=== PATIENT | female | born 1930 | race African-American/Black ===

== ENCOUNTER 2019-01-31 16:20 | Inpatient (IN) | payer MEDICARE, MEDICAID ==
[2019-01-31] VITALS (7 sets, daily range): BP systolic 98–119; BP diastolic 53–94; BMI 28.5
[~2019-01-31] VITALS: Ht 162.6 cm; Wt 75.1 kg
[2019-01-31] MEDS ORDERED: NORVASC10 MG PO (16:24)
[2019-01-31] MEDS ORDERED: BAYER CHEWABLE81 MG PO (16:25)
[2019-01-31] MEDS ORDERED: LISINOPRIL10 MG PO (16:25)
[2019-01-31] MEDS ORDERED: ZYRTEC10 MG PO (16:25)
--- NOTE | 2019-01-31 16:49 | NUR ---
FSBS= 139
[2019-01-31 16:56] LABS: BASOPHILS 0.1 % (0-2); EOSINOPHILS 0.3 % (0-7); HEMATOCRIT 49.8 % (36.0-48.0); HEMOGLOBIN 14.6 g/dL (12-16); IMMATURE GRANULOCYTES 0.5 % (0-5); MCH 28.8 pg (26.0-34.0); MCHC 29.3 g/dL (31.0-37.0); MCV 98.2 fL (80.0-100.0); MEAN PLATELET VOLUME 13.8 fL (7.4-10.4); NEUTROPHILS 80.1 % (40-80); PLATELET COUNT 148 10x3/uL (130-400); RBC 5.07 10x6/uL (4.00-5.40); RDW 16.6 % (11.5-14.5); WBC 19.1 10x3/uL (4.8-10.8)
[2019-01-31 17:11] LABS: BILIRUBIN - TOTAL 0.23 mg/dL (0.2-1.3); CALCIUM 9.1 mg/dL (8.5-10.1); CARBON DIOXIDE 24.4 mmol/L (21.0-32.0); CREATININE - SERUM 2.9 mg/dL (0.6-1.3); POTASSIUM - SERUM 4.2 mmol/L (3.5-5.1); PROTEIN - SERUM 6.8 g/dL (6.4-8.2)
[2019-01-31 17:14] LABS: ANION GAP 17.8 mmol/L (8-16)
--- NOTE | 2019-01-31 17:26 | NUR ---
DR. LR AT BEDSIDE.
[2019-01-31 18:18] LABS: CALCIUM 9.1 mg/dL (8.5-10.1); CARBON DIOXIDE 22.1 mmol/L (21.0-32.0); CREATININE - SERUM 2.9 mg/dL (0.6-1.3); POTASSIUM - SERUM 4.2 mmol/L (3.5-5.1)
[2019-01-31 18:20] LABS: ANION GAP 21.1 mmol/L (8-16)
--- NOTE | 2019-01-31 18:27 | NUR ---
PT RECIEVED FROM ER, PAGED DR CERVANTES AND BE THROUGH ANSWERING SERVICES FOR ORDER CLARIFICATION
--- NOTE | 2019-01-31 18:37 | NUR ---
SPOKE WITH ANNABELLA MENON ORDERS FOR VALDEZ, SPOKE WITH DR CERVANTES ORDERS FOR BMP 2100, INTERMEDIATE SLIDING SCALE INSULIN AND D5W
--- NOTE | 2019-01-31 19:00 | NUR ---
REPORT RECEIVED AT BEDSIDE, SHIFT ASSESSMENT COMPLETE PER FLOW SHEETS, PT CONFUSED BUT ABLE TO ANSWER SOME QUESTIONS, RT FA PIV INFUSING MEDS PER MAR/ORDERS, BLE CONTRACTURED, PPP, VSS, NSR ON CM, PT INCONTINENT OF STOOL, MAYFIELD SEMIFORMED BM NOTED, PARTIAL BATH WITH COMPLETE LINEN AND GOWN CHANGED, HOB ELEVATED, BED ALARM ON, CALL LIGHT IN REACH, WILL CONTINUE TO MONITOR
--- NOTE | 2019-01-31 19:00 | NUR ---
JUDIT DEVINE (DAUGHTER) [phone] ATIYA DUVAL (SON) [phone] CARLENE DEVINE ([place] ) [phone]
--- NOTE | 2019-01-31 19:20 | NUR ---
16fr. VALDEZ CATH PLACED WITH RN x3 AT BEDSIDE TO ASSIST, PT TOLLERATED WELL, NO S/S OF DISTRESS NOTED, CLEAR YELLOW VOID NOTED WITH 300ML IN GRAVITY BAG WHEN INSERTED BY JAYY MARKHAM RN, STATLOCK PLACED ON LEFT UPPER THIGH, VSS, NSR ON CM
[2019-01-31 21:08] LABS: CALCIUM 8.7 mg/dL (8.5-10.1); CARBON DIOXIDE 24.3 mmol/L (21.0-32.0); CREATININE - SERUM 2.8 mg/dL (0.6-1.3); POTASSIUM - SERUM 4.4 mmol/L (3.5-5.1)
[2019-01-31 21:10] LABS: ANION GAP 16.1 mmol/L (8-16)
--- NOTE | 2019-01-31 21:30 | NUR ---
DR.SHARMA HINES R/T LAB RESULTS
--- NOTE | 2019-01-31 21:35 | NUR ---
CALLED ICU, UPDATE GIVEN, ORDERS RECEIVED TO DECREASE D5W TO 100ML/HR, BMP & CBC MORNING LABS, NO FURTHER AT THIS TIME, WILL CONTINUE TO MONITOR
--- NOTE | 2019-01-31 22:00 | NUR ---
DAUGHTER AND SON AT BEDSIDE, UPDATE GIVEN, QUESTIONS ANSWERED, NO FURTHER AT THIS TIME
--- NOTE | 2019-01-31 23:00 | NUR ---
REASSESSMENT COMPLETE SEE FLOW SHEET, NO ACUTE CHANGES NOTED, VALDEZ TO GRAVITY DRAIN CLEAR YELLOW URINE, REPOSITIONED FOR COMFORT, VSS, NSR ON CM, WILL CONTINUE TO MONITOR
[2019-02-01] VITALS (24 sets, daily range): BP systolic 89–137; BP diastolic 42–86
[2019-02-01 02:22] LABS: BASOPHILS 0.1 % (0-2); EOSINOPHILS 1.2 % (0-7); HEMATOCRIT 45.7 % (36.0-48.0); HEMOGLOBIN 13.7 g/dL (12-16); IMMATURE GRANULOCYTES 0.6 % (0-5); LYMPHOCYTES 17.3 % (15-50); MCH 29.1 pg (26.0-34.0); MONOCYTES 4.6 % (2-11); NEUTROPHILS 76.2 % (40-80); PLATELET COUNT 129 10x3/uL (130-400); RBC 4.71 10x6/uL (4.00-5.40); RDW 16.3 % (11.5-14.5); WBC 17.9 10x3/uL (4.8-10.8)
[2019-02-01 02:28] LABS: ALBUMIN 2.8 g/dL (3.4-5.0); BILIRUBIN - TOTAL 0.51 mg/dL (0.2-1.3); CALCIUM 8.7 mg/dL (8.5-10.1); CARBON DIOXIDE 26.1 mmol/L (21.0-32.0); CREATININE - SERUM 2.8 mg/dL (0.6-1.3); POTASSIUM - SERUM 4.4 mmol/L (3.5-5.1); PROTEIN - SERUM 6.3 g/dL (6.4-8.2)
[2019-02-01 02:34] LABS: ANION GAP 13.3 mmol/L (8-16)
--- NOTE | 2019-02-01 03:00 | NUR ---
REASSESSMENT COMPLETE SEE FLOW SHEET, VSS, NSR ON CM, NO ACUTE CHANGES NOTED FROM PRIOR ASSESSMENT, REPOSITIONED FOR COMFORT, WILL CONTINUE TO MONITOR
--- NOTE | 2019-02-01 07:00 | NUR ---
AWAKES EASILY TO VERBAL STIMULI, NOT RESPONSIVE TO VERBAL STIMULI, DOES NOT ANSWER QUESTION APPRIOPIATELY. TOLD NURSE "I TOLD YOU". SKIN WARM AND DRY. IV RIGHT FOREARM WITHOUT REDNESS OR SWELLING. INFUSING WITH D5W AT 100 ML HOUR. VALDEZ CATH PATENT DRAINING CLEAR CARI URINE. MONITOR SR. PATIENT IN POSITIONED. GRABBING AND PULLING ON EKG WIRES AND GOWN. WILL NOT STRAIGHTEN LEGS, BUT DOES MOVE ARMS UP AND DOWN. HANDS CURLED.
--- NOTE | 2019-02-01 08:00 | NUR ---
DAUGHTER HERE UPDATE GIVEN. DAUGHTER FEED PATIENT SOME JELLO. STATES HER MOTHER DOES NOT DRINK MUCH FLUIDS, BUT EAT SOLID FOOD WELL.
--- NOTE | 2019-02-01 09:00 | NUR ---
PATIENT REPOSITIONED A UNIT IN POSITION. SMALL SOFT BROWN STOOL. NO SKIN BREAKDOWN NOTED. FIESTY PUSHING NURSE AWAY. PULLING LEADS OFF, PULLING GOWN OFF. DAUGHTER AT BEDSIDE.
[2019-02-01 09:39] LABS: CALCIUM 8.4 mg/dL (8.5-10.1); CARBON DIOXIDE 23.9 mmol/L (21.0-32.0); CREATININE - SERUM 2.9 mg/dL (0.6-1.3); POTASSIUM - SERUM 4.1 mmol/L (3.5-5.1)
[2019-02-01 09:42] LABS: ANION GAP 15.2 mmol/L (8-16)
--- NOTE | 2019-02-01 11:00 | NUR ---
REPOSITIONED. ULTRA SOUND COMPLETED. PATIENT MOVING MOST OF THE TIME. DOES NAP AT INTERVALS. NO DISTRESS. ASSESSMENT DOCUMENTED
--- NOTE | 2019-02-01 13:00 | NUR ---
DAUGHTER HERE FEED PATIENT SOME JELLO. REPOSITIONED SMALL SOFT BROWN STOOL.
--- NOTE | 2019-02-01 15:00 | NUR ---
COMPLETE BED BATH GIVEN WITH HIBCLENS. PATIENT TOLERATED WELL. MOD SIZE SOFT BROWN STOOL. NO SKIN BREAKDOWN NOTED. COMPLETE LINEN CHANGE. MONITOR SR. NO DISTRESS. DR. CERVANTES HERE.
[2019-02-01 15:04] LABS: CREATININE - URINE 56.6 mg/dL (30-125); PRO/CRE RATIO URINE 1.1 mg/g; PROTEIN - URINE 60.5 mg/dL (0.0-11.9)
[2019-02-01 15:26] LABS: APPEARANCE CLOUDY (CLEAR); BILIRUBIN NEGATIVE (NEGATIVE); COLOR YELLOW (YELLOW); GLUCOSE 100 mg/dL (NEGATIVE); KETONE NEGATIVE (NEGATIVE); NITRITE NEGATIVE (NEGATIVE); PROTEIN TRACE mg/dL (NEGATIVE); SPECIFIC GRAVITY 1.015 (1.005-1.020); UROBILINOGEN NORMAL (NORMAL)
[2019-02-01 15:28] LABS: AMORPHOUS SEDIMENT <1+ /lpf (NONE SEEN); BACTERIA FEW /hpf (NEGATIVE); RED CELLS - URINE 0-5 /hpf (0-5); WHITE CELLS - URINE 0-5 /hpf (NEGATIVE)
--- NOTE | 2019-02-01 17:00 | NUR ---
feed jello taken fair. more friendly and cooperative. no distress
[2019-02-01 19:14] LABS: CALCIUM 8.4 mg/dL (8.5-10.1); CARBON DIOXIDE 24.1 mmol/L (21.0-32.0); CREATININE - SERUM 2.9 mg/dL (0.6-1.3)
[2019-02-01 19:15] LABS: ANION GAP 15.9 mmol/L (8-16)
--- NOTE | 2019-02-01 19:34 | NUR ---
DR.SHARMA HINES R/T LABS
--- NOTE | 2019-02-01 19:41 | NUR ---
RETURNED PAGE, UPDATE GIVEN WITH LAB RESULTS, NO NEW ORDERS RECEIVED, WILL CONTINUE TO MONITOR
--- NOTE | 2019-02-01 20:12 | NUR ---
SEMISOLID MAYFIELD BROWN BM NOTED, COMPLETE LINEN CHANGE AND PARTIAL BATH, YELLOW GOWN PLACED ON PT, REPOSITIONED FOR COMFORT, VSS, WILL CONTINUE TO MONITOR
--- NOTE | 2019-02-01 23:00 | NUR ---
REASSESSMENT COMPLETE SEE FLOW SHEET, NO ACUTE CHANGES NOTED, VSS, REPOSITIONED FOR COMFORT, WILL CONTINUE TO MONITOR
[2019-02-02] VITALS (11 sets, daily range): BP systolic 105–121; BP diastolic 44–78; Ht 162.6 cm; Wt 75.1 kg
--- NOTE | 2019-02-02 03:00 | NUR ---
REASSESMENT COMPLETE PER FLOW SHEET, NO ACUTE CHANGE NOTED SINCE PRIOR ASSESSMENT, REPOSITIONED FOR COMFORT, VSS, WILL CONTINUE TO MONITOR
[2019-02-02 04:43] LABS: BASOPHILS 0.1 % (0-2); EOSINOPHILS 2.3 % (0-7); HEMATOCRIT 45.2 % (36.0-48.0); HEMOGLOBIN 13.5 g/dL (12-16); IMMATURE GRANULOCYTES 0.8 % (0-5); LYMPHOCYTES 20.5 % (15-50); MCH 28.6 pg (26.0-34.0); MCHC 29.9 g/dL (31.0-37.0); MCV 95.8 fL (80.0-100.0); MONOCYTES 5.3 % (2-11); PLATELET COUNT 121 10x3/uL (130-400); RBC 4.72 10x6/uL (4.00-5.40); RDW 16.4 % (11.5-14.5); WBC 13.7 10x3/uL (4.8-10.8)
[2019-02-02 04:54] LABS: CALCIUM 8.2 mg/dL (8.5-10.1); CARBON DIOXIDE 22.9 mmol/L (21.0-32.0); CREATININE - SERUM 2.8 mg/dL (0.6-1.3); MAGNESIUM - SERUM 3.1 mg/dL (1.8-2.4); POTASSIUM - SERUM 3.9 mmol/L (3.5-5.1); VANCOMYCIN - RANDOM 7.5 ug/mL (10.0-20.0)
--- NOTE | 2019-02-02 07:00 | NUR ---
SHIFT ASSESSMENT COMPLETED. PT CARE ASSUMED, MONITORS ON AND WORKING, VITALS STABLE, PT LYING IN BED RESTING, CALL LIGHT WITHIN REACH, SEE FLOW SHEET FOR FURTHER DETAILS. WILL CONTINUE TO OBSERVE.
--- NOTE | 2019-02-02 09:00 | NUR ---
PT TURNED AND REPOSITIONED FOR COMFORT, MONITORS ON AND WORKING, VITALS STABLE, NO SIGNS/SYMPTOMS OF PAIN OR DISCOMFORT NOTED AT THIS TIME, CALL LIGHT WITHIN REACH, WILL CONTINUE TO OBSERVE.
--- NOTE | 2019-02-02 11:00 | NUR ---
FAMILY AT BEDSIDE, UPDATE PROVIDED, PT SITTING UP IN BED, MONITORS ON AND WORKING, VITALS STABLE, CALL LIGHT WITHIN REACH, WILL CONTINUE TO OBSERVE.
--- NOTE | 2019-02-02 15:00 | NUR ---
PT TURNED AND REPOSITIONED FOR COMFORT, MONITORS ON AND WORKING, VITALS STABLE. CALL LIGHT WITHIN REACH, SEE FLOW SHEET FOR FURTHER DETAILS. WILL CONTINUE TO OBSERVE.
--- NOTE | 2019-02-02 19:15 | NUR ---
REPORT RECEIVED, PT RESTING IN BED, NO ACUTE DISTRESS NOTED. ASSESSMENT COMPLETED, SEE FLOWSHEET. VITALS STABLE, WILL CONTINUE TO MONITOR.
--- NOTE | 2019-02-02 19:44 | MORECARE ---
CASE MANAGEMENT DISCHARGE SUMMARY PATIENT: EMILE AMBRIZ UNIT: [id number] ADM DATE: 01/31/19 AGE: 88 : 32 SEX: F ROOM/BED: D.2305 AUTHOR: TEODORO COLES PHYSICIAN: REFERRING PHYSICIAN: DORA LR MD DATE OF SERVICE: 02/02/19 Discharge Plan Patient Name: EMILE AMBRIZ [facility] [facility] 1930 Planned Disposition: Nursing Facility [facility] Anticipated Discharge Date: Discharge Date: Expected LOS: Initial Reviewer: [email or web address] Initial Review Date: 01/31/2019 Generated: 02/02/19 8:44 pm DCPIA - Discharge Planning Initial Assessment Updated by [email or web address]: Helen Lira on 02/02/19 7:41 pm * Is the patient Alert and Oriented? No * PCP [facility] * Pharmacy [facility] * Preadmission Environment Patient Care Associate Long-Term * Facility Name [facility] * ADLs Total Dependent * List name and contact numbers for known caregivers / representatives who currently or will assist patient after discharge: Porsha Monreo -[facility]- [phone] * Verbal permission to speak to the caregivers and representatives has been obtained from the patient. N/A * Community resources currently utilized None * Additional services required to return to the preadmission environment? No * Can the patient safely return to the preadmission environment? Yes * Has this patient been hospitalized within the prior 30 days at any hospital? No Patient Name: EMILE AMBRIZ Page [id number] at 1944 All edits/amendments must be made on the electronic document DICTATION DATE: 02/02/191943 MANAGER OF FINANCIAL REPORTING: GERMÁN 02/02/191943 RPT#: [id number] DC DATE: STATUS: ADM IN [facility] [address] [place] [address] END OF REPORT
--- NOTE | 2019-02-02 19:52 | MORECARE ---
CASE MANAGEMENT DISCHARGE SUMMARY PATIENT: EMILE AMBRIZ UNIT: [id number] ADM DATE: 01/31/19 AGE: 88 : 32 SEX: F ROOM/BED: D.2305 AUTHOR: SHARYN,DOC PHYSICIAN: REFERRING PHYSICIAN: DORA LR MD DATE OF SERVICE: 02/02/19 Discharge Plan Patient Name: EMILE AMBRIZ Facility: [facility]:[place] : 1930 Planned Disposition: Nursing Facility [facility] Cert Anticipated Discharge Date: Discharge Date: Expected LOS: Initial Reviewer: [email or web address] Initial Review Date: 01/31/2019 Generated: 02/02/19 8:51 pm Comments DCP- Discharge Planning Updated by [email or web address]: Helen Lira on 02/02/19 6:[address] Patient Name: EMILE AMBRIZ Admission Status: ER Accout number: [id number] Admission Date: 01-31-2019 : 1930 Admission Diagnosis: Attending: BE, Current LOS: 2 Anticipated DC Date: Planned Disposition: Nursing Facility [facility] Cert Primary Insurance: MEDICARE A & B Discharge Planning Comments: CM met with patient and daughter (Porsha) to complete initial dc planning assessment. CM educated patient on the CM role and verbal consent given by patient to complete assessment. Patient lives at [facility] her daughter states she has been a resident there for the past 4 yrs. At discharge patient's daughter plans for her to return to facility. Denied known discharge needs at this time. CM will continue to follow and will assist as needed with dc plans/needs. Office Machine Technician: Helen Lira DCPIA - Discharge Planning Initial Assessment Updated by [email or web address]: Helen Lira on 02/02/19 7:41 pm * Is the patient Alert and Oriented? No * PCP [facility] * Pharmacy [facility] * Preadmission Environment Intermediate Fdc * Facility Name [facility] * ADLs Total Dependent * List name and contact numbers for known caregivers / representatives who currently or will assist patient after discharge: Porsha Monroe -daughter- [phone] * Verbal permission to speak to the caregivers and representatives has been obtained from the patient. N/A * Community resources currently utilized None * Additional services required to return to the preadmission environment? No * Can the patient safely return to the preadmission environment? Yes * Has this patient been hospitalized within the prior 30 days at any hospital? No Last DP export: 02/02/19 6:44 p Patient Name: EMILE AMBRIZ Page [id number] at 195 All edits/amendments must be made on the electronic document DICTATION DATE: 02/02/191950 CHIEF DESIGN ENGINEER: GERMÁN 02/02/191950 RPT#: [id number] DC DATE: STATUS: ADM IN [facility] [address] [place] [address] END OF REPORT
--- NOTE | 2019-02-02 21:00 | NUR ---
PT RESTING IN BED, NO ACUTE DISTRESS NOTED.
--- NOTE | 2019-02-02 23:00 | NUR ---
PT RESTING IN BED, NO ACUTE DISTRESS NOTED.
[2019-02-03] VITALS (7 sets, daily range): BP systolic 102–130; BP diastolic 68–106
--- NOTE | 2019-02-03 01:00 | NUR ---
PT RESTING IN BED, NO ACUTE DISTRESS NOTED.
--- NOTE | 2019-02-03 03:00 | NUR ---
PT RESTING IN BED, VITALS STABLE, WILL CONTINUE TO MONITOR.
--- NOTE | 2019-02-03 05:00 | NUR ---
PT RESTING IN BED, NO ACUTE DISTRESS NOTED.
[2019-02-03 05:07] LABS: BASOPHILS 0.2 % (0-2); EOSINOPHILS 2.3 % (0-7); HEMATOCRIT 45.8 % (36.0-48.0); HEMOGLOBIN 13.7 g/dL (12-16); IMMATURE GRANULOCYTES 1.3 % (0-5); LYMPHOCYTES 22.2 % (15-50); MCH 28.6 pg (26.0-34.0); MCHC 29.9 g/dL (31.0-37.0); MCV 95.6 fL (80.0-100.0); MONOCYTES 5.4 % (2-11); NEUTROPHILS 68.6 % (40-80); PLATELET COUNT 103 10x3/uL (130-400); RBC 4.79 10x6/uL (4.00-5.40); RDW 15.9 % (11.5-14.5); WBC 13.6 10x3/uL (4.8-10.8)
[2019-02-03 05:28] LABS: CALCIUM 8.2 mg/dL (8.5-10.1); CARBON DIOXIDE 21.1 mmol/L (21.0-32.0); CREATININE - SERUM 2.5 mg/dL (0.6-1.3); POTASSIUM - SERUM 3.7 mmol/L (3.5-5.1)
[2019-02-03 05:29] LABS: ANION GAP 15.6 mmol/L (8-16)
--- NOTE | 2019-02-03 07:15 | NUR ---
ASSESSMENT DONE AT THIS TIME
--- NOTE | 2019-02-03 09:57 | NUR ---
REPORT RECIEVED. PATIENT DID NOT HAVE IV ACCESS. BLOOD SUGAR NEEDED TO BE CHECKED. NEW IV STARTED IN L WRIST. ROOM AIR. BLANKETS WET DUE TO IV NOT BEING IN VEIN AND BEING IN THE BED. NO DISTRESS. PATIENT LEANED OVER TO R SIDE AND REFUSES TO ALLOW RN'S TO MOVE HER. WILL CONTINUE TO MONITOR HER
--- NOTE | 2019-02-03 11:21 | NUR ---
SPEECH EVAL AT BEDSIDE.
[2019-02-03 17:33] LABS: ANION GAP 12.5 mmol/L (8-16); CALCIUM 8.1 mg/dL (8.5-10.1); CARBON DIOXIDE 22.9 mmol/L (21.0-32.0); CREATININE - SERUM 2.3 mg/dL (0.6-1.3); POTASSIUM - SERUM 3.4 mmol/L (3.5-5.1)
--- NOTE | 2019-02-03 19:00 | NUR ---
BEDSIDE REPORT AND SHIFT ASSESSMENT COMPLETE, SEE FLOWSHEET. PT CONFUSED, UNABLE TO TELL ME HER NAME OR WHERE SHE IS. VSS, NO SIGNS OF ACUTE DISTRESS NOTED. CALL LIGHT IN REACH, BED IN LOWEST POSITION, WILL CONTINUE TO MONITOR.
--- NOTE | 2019-02-03 20:00 | NUR ---
OBSERVED PT PULLING AT LINES, TUBES. ATTEMPTED TO REORIENT.
--- NOTE | 2019-02-03 21:00 | NUR ---
PT HAD LG BM, BATH AND LINEN CHANGE COMPLETE.
--- NOTE | 2019-02-04 00:20 | NUR ---
PIV LEAKING, NOT PATENT. REMOVED AND RESITED 20G TO L FOREARM AND WRAPPED TO PREVENT PT FROM PULLING LINES.
--- NOTE | 2019-02-04 02:30 | NUR ---
PT SLEEPING. VSS, NO SIGNS OF ACUTE DISTRESS NOTED. WILL MONITOR.
[2019-02-04 03:00] VITALS: BP 119/57
[2019-02-04 04:43] LABS: HEMATOCRIT 42.9 % (36.0-48.0); HEMOGLOBIN 13.2 g/dL (12-16); MCH 28.6 pg (26.0-34.0); MCHC 30.8 g/dL (31.0-37.0); PLATELET COUNT 91 10x3/uL (130-400); RBC 4.61 10x6/uL (4.00-5.40); RDW 14.9 % (11.5-14.5); WBC 12.1 10x3/uL (4.8-10.8)
[2019-02-04 05:02] LABS: ANION GAP 12.9 mmol/L (8-16); CALCIUM 8.3 mg/dL (8.5-10.1); CARBON DIOXIDE 24.5 mmol/L (21.0-32.0); CREATININE - SERUM 1.8 mg/dL (0.6-1.3); POTASSIUM - SERUM 3.4 mmol/L (3.5-5.1)
[2019-02-04 05:04] LABS: MCV 93.1 fL (80.0-100.0)
[2019-02-04 05:51] LABS: EOSINOPHILS 3 % (0-7); LYMPHOCYTES 21 % (15-50); MONOCYTES 3 % (2-11); NEUTROPHILS 73 % (40-80); PLATELET ESTIMATE DECREASED
[2019-02-04 06:00] VITALS: BP 128/46
[2019-02-04 09:01] VITALS: BP 142/64
[2019-02-04 12:49] VITALS: BP 122/81
[2019-02-04 18:35] VITALS: BP 118/60
--- NOTE | 2019-02-04 19:15 | NUR ---
LYING IN BED. ALERT AND ORIENTED TO SELF ONLY. CONFUSED. IRRITABLE AT TIMES. RESTLESS,PULLING ON IV LINE. PEG TUBE IS CLAMPED AND ABD BINDER IS IN USE. RESP EVEN AND NONLABORED. VALDEZ CATH PATENT AND DRAINING YELLOW URINE. CONTRACTURES NOTED TO BLE. INCONT OF LARGE AMOUNT OF BROWN LIQUID STOOL. PERICARE PERFORMED AND LINENS CHANGED AT THIS TIME. D5W @ 125 MLHR INFUSING IN RT FOREARM. PT IS BEDRIDDEN. SR ELEVATED X2. CL IN REACH. NO DISTRESS.
[2019-02-04 20:00] VITALS: BP 126/66
--- NOTE | 2019-02-04 23:32 | NUR ---
PULLING AT IV. IV HAS INFILTRATED NOW IN LT FOREARM. IV CATH REMOVED. 22G INSERTED IN RT FOREARM AFTER 2 ATTEMPTS AND WRAPPED WITH KERLIX. PT HAD ALSO PULLED ABD BINDER OPEN. ABD BINDER SECURED AT THIS TIME. PEG TUBE STILL IN.
[2019-02-05] VITALS (7 sets, daily range): BP systolic 104–141; BP diastolic 42–117
--- NOTE | 2019-02-05 01:17 | NUR ---
LYING ON RT SIDE IN BED WITH EYES CLOSED. RESP EVEN AND NONLABORED. NO DISTRESS. ABD BINDER IN PLACE. IV INFUSING IN RT FOREARM WITHOUT DIFF. SR ELEVATED X2. CL IN REACH.
--- NOTE | 2019-02-05 03:41 | NUR ---
LYING ON RT SIDE IN BED WITH EYES CLOSED. RESP NONLABORED. NO DISTRESS. ABD BINDER STILL IN PLACE. SR ELEVATED X2. CL IN REACH.
[2019-02-05 05:38] LABS: BASOPHILS 0.2 % (0-2); EOSINOPHILS 1.8 % (0-7); HEMATOCRIT 40.6 % (36.0-48.0); HEMOGLOBIN 12.8 g/dL (12-16); IMMATURE GRANULOCYTES 1.4 % (0-5); LYMPHOCYTES 17.6 % (15-50); MCH 28.4 pg (26.0-34.0); MCHC 31.5 g/dL (31.0-37.0); MONOCYTES 5.3 % (2-11); NEUTROPHILS 73.7 % (40-80); PLATELET COUNT 86 10x3/uL (130-400); RDW 14.1 % (11.5-14.5); WBC 11.4 10x3/uL (4.8-10.8)
[2019-02-05 05:59] LABS: ANION GAP 11.7 mmol/L (8-16); CALCIUM 8.1 mg/dL (8.5-10.1); CARBON DIOXIDE 24.4 mmol/L (21.0-32.0); CREATININE - SERUM 1.7 mg/dL (0.6-1.3); PHOSPHOROUS 2.3 mg/dL (2.5-4.9); POTASSIUM - SERUM 3.1 mmol/L (3.5-5.1)
[2019-02-05 06:00] LABS: MCV 90.2 fL (80.0-100.0)
[2019-02-05 06:32] LABS: PLATELET ESTIMATE DECREASED
--- NOTE | 2019-02-05 07:27 | NUR ---
A/A/OX1 TO SELF ONLY. NO APPEARANCE OF ANY PAIN (GROANING, MOAINING OR GRIMACING). VALDEZ PATENT AND DRAINING WELL TO BEDSIDE DRAINAGE. PEG TUBE IN PLACE,CLAMPED AND COVERED WITH ABD BINDER. IV PATENT TO RIGHT FOREARM AND INFUSING WELL WITHOUT REDNESS OR EDEMA AT SITE.
--- NOTE | 2019-02-05 09:11 | MORECARE ---
CASE MANAGEMENT DISCHARGE SUMMARY PATIENT: EMILE AMBRIZ UNIT: [id number] ADM DATE: 01/31/19 AGE: 88 : 32 SEX: F ROOM/BED: D.2102 AUTHOR: SHARYN,DOC PHYSICIAN: REFERRING PHYSICIAN: DORA LR MD DATE OF SERVICE: 02/05/19 Discharge Plan Patient Name: EMILE AMBRIZ Facility: [facility]:[place] : 1930 Planned Disposition: Nursing Facility [facility] Cert Anticipated Discharge Date: Discharge Date: Expected LOS: Initial Reviewer: [email or web address] Initial Review Date: 01/31/2019 Generated: 02/05/19 10:11 am Comments DCP- Discharge Planning Updated by [email or web address]: Helen Lira on 02/02/19 6:[address] Patient Name: EMILE AMBRIZ Admission Status: ER Accout number: [id number] Admission Date: 01-31-2019 : 1930 Admission Diagnosis: Attending: BE, Current LOS: 2 Anticipated DC Date: Planned Disposition: Nursing Facility [facility] Cert Primary Insurance: MEDICARE A & B Discharge Planning Comments: CM met with patient and daughter (Porsha) to complete initial dc planning assessment. CM educated patient on the CM role and verbal consent given by patient to complete assessment. Patient lives at [facility] her daughter states she has been a resident there for the past 4 yrs. At discharge patient's daughter plans for her to return to facility. Denied known discharge needs at this time. CM will continue to follow and will assist as needed with dc plans/needs. Business Services Tech: Helen Lira DCPIA - Discharge Planning Initial Assessment Updated by [email or web address]: Helen Lira on 02/02/19 7:41 pm * Is the patient Alert and Oriented? No * PCP [facility] * Pharmacy [facility] * Preadmission Environment Fdc Shelter * Facility Name [facility] * ADLs Total Dependent * List name and contact numbers for known caregivers / representatives who currently or will assist patient after discharge: Porsha Monroe -daughter- [phone] * Verbal permission to speak to the caregivers and representatives has been obtained from the patient. N/A * Community resources currently utilized None * Additional services required to return to the preadmission environment? No * Can the patient safely return to the preadmission environment? Yes * Has this patient been hospitalized within the prior 30 days at any hospital? No External Providers External Provider: [facility] Next Contact Date: 02/05/2019 Service Request Date: Service Type: Resolution: Reviewer: Comments: Last DP export: 02/02/19 6:52 p Patient Name: EMILE AMBRIZ Page [phone] at 0911 All edits/amendments must be made on the electronic document DICTATION DATE: 02/05/19910 OXYGEN TANK FILLER: GERMÁN 02/05/19910 RPT#: [id number] DC DATE: STATUS: ADM IN [facility] [address] [place] [address] END OF REPORT
--- NOTE | 2019-02-05 09:20 | MORECARE ---
CASE MANAGEMENT DISCHARGE SUMMARY PATIENT: EMILE AMBRIZ UNIT: [id number] ADM DATE: 01/31/19 AGE: 88 : 32 SEX: F ROOM/BED: D.2102 AUTHOR: SHARYN,DOC PHYSICIAN: REFERRING PHYSICIAN: DORA LR MD DATE OF SERVICE: 02/05/19 Discharge Plan Patient Name: EMILE AMBRIZ Facility: [facility]:[place] : 1930 Planned Disposition: Nursing Facility [facility] Cert Anticipated Discharge Date: Discharge Date: Expected LOS: Initial Reviewer: [email or web address] Initial Review Date: 01/31/2019 Generated: 02/05/19 10:19 am Comments DCP- Discharge Planning Updated by [email or web address]: Troy Alamo on 02/05/19 8:[address] Patient Name: EMILE AMBRIZ Encounter No: [id number] : 1930 Primary Insurance: MEDICARE A & B Anticipated DC Date: Planned Disposition: Nursing Facility [facility] Cert External Planned Provider[facility], [facility] [employer] [facility] MEDICAID BED DCP follow-up note: CM FA[facility] UPDATE [facility], . FOR DISCHARGE BACK TO LONGTERM CARE AT [facility], FAX DISCHARGE INFORMATION TO [place] AT [phone]. NURSE REPORT TO BE CALLED TO [facility] AT [phone]. PT TO TRANSPORT VIA AMBULANCE. LUCA Lozano DCP- Discharge Planning Updated by [email or web address]: Helen Lira on 02/02/19 6:[address] Patient Name: EMILE AMBRIZ Admission Status: ER Accout number: [id number] Admission Date: 01-31-2019 : 1930 Admission Diagnosis: Attending: BE, Current LOS: 2 Anticipated DC Date: Planned Disposition: Nursing Facility [facility] Cert Primary Insurance: MEDICARE A & B Discharge Planning Comments: CM met with patient and daughter (Porsha) to complete initial dc planning assessment. CM educated patient on the CM role and verbal consent given by patient to complete assessment. Patient lives at [facility] her daughter states she has been a resident there for the past 4 yrs. At discharge patient's daughter plans for her to return to facility. Denied known discharge needs at this time. CM will continue to follow and will assist as needed with dc plans/needs. Photolith Operator: Helen Lira DCPIA - Discharge Planning Initial Assessment Updated by [email or web address]: Helen Lira on 02/02/19 7:41 pm * Is the patient Alert and Oriented? No * PCP [facility] * Pharmacy [facility] * Preadmission Environment Assisted Alf * Facility Name [facility] * ADLs Total Dependent * List name and contact numbers for known caregivers / representatives who currently or will assist patient after discharge: Porsha Monroe -daughter- [phone] * Verbal permission to speak to the caregivers and representatives has been obtained from the patient. N/A * Community resources currently utilized None * Additional services required to return to the preadmission environment? No * Can the patient safely return to the preadmission environment? Yes * Has this patient been hospitalized within the prior 30 days at any hospital? No Last DP export: 02/05/19 8:11 a Patient Name: EMILE AMBRIZ Page [phone] at 0920 All edits/amendments must be made on the electronic document DICTATION DATE: 02/05/19918 SOFTWARE APPLICATIONS DEVELOPER: GERMÁN 02/05/19918 RPT#: [id number] DC DATE: STATUS: ADM IN [facility] [address] [place] [address] END OF REPORT
--- NOTE | 2019-02-05 12:15 | NUR ---
I have reviewed this patient and I concur with the Shift Assessment completed by the Licensed Practical Nurse today this shift.
--- NOTE | 2019-02-05 12:18 | NUR ---
Nutrition Consult/Follow-up: S/p PEG placement yesterday. Received consult for TF. Ate small amt of jamestrevin this AM. Being followed by ST; they rec puree with nectar thick liquids. Diet: Clear Liquids Wt: 165.3# Last BM: 02/04 Labs noted: Na 150, K+ 3.1, Glu 178, Ca 8.1, PO4 2.3 Meds noted: Reglan, Pepcid, Humulin, D5W @ 125 -Start Glucerna 1.0 @ 15 mL/hr and increase by 10 mL q 6 hrs to goal rate of 60 mL/hr; provides 1440 kcal, 60 g protein, 1228 mL H2O. Noted MD to start 200 cc flushes q 4 hours. -Upon d/c, rec Glucerna 1.0 @ 60 mL/hr + H2O flushes 50 mL q 4 hours. -RD following. Thanks for the consult!
--- NOTE | 2019-02-05 13:30 | NUR ---
IV INFILTRATED. IV DC'D AND RESTARTED IN LEFT WRIST WITH 22 G X 1 ATTEMPT.
--- NOTE | 2019-02-05 14:00 | NUR ---
TUBE FEEDING STARTED VIA PUMP TO PEG TUBE WITH GLUCERNA 1.0 AT 15 CC HR. WITH Q4HR H20 FLUSH OF 200CC. ABD BINDER REMAINS IN PLACE.
--- NOTE | 2019-02-05 15:07 | NUR ---
TUBE FEEDING INCREASED TO 25 CC/HR
--- NOTE | 2019-02-05 16:00 | MORECARE ---
CASE MANAGEMENT DISCHARGE SUMMARY PATIENT: EMILE AMBRIZ UNIT: [id number] ADM DATE: 01/31/19 AGE: 88 : 32 SEX: F ROOM/BED: D.2102 AUTHOR: SHARYNDOC PHYSICIAN: REFERRING PHYSICIAN: DORA LR MD DATE OF SERVICE: 02/05/19 Discharge Plan Patient Name: EMILE AMBRIZ Facility: [facility]:[place] : 1930 Planned Disposition: Nursing Facility [facility] Cert Anticipated Discharge Date: 02/06/19 Discharge Date: Expected LOS: 6 Initial Reviewer: [email or web address] Initial Review Date: 01/31/2019 Generated: 02/05/19 4:59 pm Comments DCP- Discharge Planning Updated by [email or web address]: Troy Alamo on 02/05/19 8:[address] Patient Name: EMILE AMBRIZ Encounter No: [id number] : 1930 Primary Insurance: MEDICARE A & B Anticipated DC Date: Planned Disposition: Nursing Facility [facility] Cert External Planned Provider: [facility], LONG TERM CARE MEDICAID BED DCP follow-up note: CM FAXED UPDATE TO [facility], . FOR DISCHARGE BACK TO [facility], FAX DISCHARGE INFORMATION TO [place] AT [phone]. NURSE REPORT TO BE CALLED TO [facility] AT [phone]. PT TO TRANSPORT VIA AMBULANCE. LUCA Lozano DCP- Discharge Planning Updated by [email or web address]: Helen Lira on 02/02/19 6:[address] Patient Name: EMILE AMBRIZ Admission Status: ER Accout number: [id number] Admission Date: 01-31-2019 : 1930 Admission Diagnosis: Attending: BE, Current LOS: 2 Anticipated DC Date: Planned Disposition: Nursing Facility [facility] Cert Primary Insurance: MEDICARE A & B Discharge Planning Comments: CM met with patient and daughter (Porsha) to complete initial dc planning assessment. CM educated patient on the CM role and verbal consent given by patient to complete assessment. Patient lives at [facility] her daughter states she has been a resident there for the past 4 yrs. At discharge patient's daughter plans for her to return to facility. Denied known discharge needs at this time. CM will continue to follow and will assist as needed with dc plans/needs. Audiovisual Equipment Operator: Helen Lira DCPIA - Discharge Planning Initial Assessment Updated by [email or web address]: Helen Lira on 02/02/19 7:41 pm * Is the patient Alert and Oriented? No * PCP [facility] * Pharmacy [facility] * Preadmission Environment Mammography Technologist Custodial * Facility Name [facility] * ADLs Total Dependent * List name and contact numbers for known caregivers / representatives who currently or will assist patient after discharge: Porsha Monroe -daughter- [phone] * Verbal permission to speak to the caregivers and representatives has been obtained from the patient. N/A * Community resources currently utilized None * Additional services required to return to the preadmission environment? No * Can the patient safely return to the preadmission environment? Yes * Has this patient been hospitalized within the prior 30 days at any hospital? No Last DP export: 02/05/19 8:20 a Patient Name: EMILE AMBRIZ Page 45094 at 1600 All edits/amendments must be made on the electronic document DICTATION DATE: 02/05/191558 MATERIAL HANDLER: GERMÁN 02/05/191558 RPT#: [id number] DC DATE: STATUS: ADM IN [facility] [address] [place] [address] END OF REPORT
--- NOTE | 2019-02-05 16:07 | MORECARE ---
CASE MANAGEMENT DISCHARGE SUMMARY PATIENT: EMILE AMBRIZ UNIT: [id number] ADM DATE: 01/31/19 AGE: 88 : 32 SEX: F ROOM/BED: D.2102 AUTHOR: SHARYN,DOC PHYSICIAN: REFERRING PHYSICIAN: DORA LR MD DATE OF SERVICE: 02/05/19 Discharge Plan Patient Name: EMILE AMBRIZ Facility: [facility]:[place] : 1930 Planned Disposition: Nursing Facility [facility] Cert Anticipated Discharge Date: 02/06/19 Discharge Date: Expected LOS: 6 Initial Reviewer: [email or web address] Initial Review Date: 01/31/2019 Generated: 02/05/19 5:07 pm Comments DCP- Discharge Planning Updated by [email or web address]: Troy Alamo on 02/05/19 3:[address] Patient Name: EMILE AMBRIZ Encounter No: [id number] : 1930 Primary Insurance: MEDICARE A & B Anticipated DC Date: 02-06-2019 Planned Disposition: Nursing Facility [facility] Cert External Planned Provider: [facility], LONG TERM CARE MEDICAID BED CM CALLED AND SPOKE TO [facility], , WHO ASKED FOR UPDATE ON DIET. CM NOTIFIED OF DIET ORDERS. NOTIFIED OF PLANNED DISHCHARGE TO [facility] TOMORROW. CM FAXED UPDATE TO [facility], . FOR DISCHARGE BACK TO [facility] AT [facility], FAX DISCHARGE INFORMATION TO [facility] AT [phone]. NURSE REPORT TO BE CALLED TO [facility] AT [phone]. PT TO TRANSPORT VIA AMBULANCE. LUCA Lozano DCP- Discharge Planning Updated by [id number]: Troy Alamo on 02/05/19 8:[address] Patient Name: EMILE AMBRIZ Encounter No: [id number] : 1930 Primary Insurance: MEDICARE A & B Anticipated DC Date: Planned Disposition: Nursing Facility [facility] Cert External Planned Provider: [facility], SENIOR LIVING CARE MEDICAID BED DCP follow-up note: CM FAXED UPDATE TO [facility], . FOR DISCHARGE BACK TO [facility] AT [facility], FAX DISCHARGE INFORMATION TO [facility] AT [phone]. NURSE REPORT TO BE CALLED TO [facility] AT [phone]. PT TO TRANSPORT VIA AMBULANCE. Troy Alamo, CASE MANAGEMENT DCP- Discharge Planning Updated by [email or web address]: Helen Lira on 02/02/19 6:[address] Patient Name: EMILE AMBRIZ Admission Status: ER Accout number: [id number] Admission Date: 01-31-2019 : 1930 Admission Diagnosis: Attending: BE, Current LOS: 2 Anticipated DC Date: Planned Disposition: Nursing Facility [facility] Primary Insurance: MEDICARE A & B Discharge Planning Comments: CM met with patient and daughter (Porsha) to complete initial dc planning assessment. CM educated patient on the CM role and verbal consent given by patient to complete assessment. Patient lives at [facility] her daughter states she has been a resident there for the past 4 yrs. At discharge patient's daughter plans for her to return to facility. Denied known discharge needs at this time. CM will continue to follow and will assist as needed with dc plans/needs. Bank Analyst: Helen Lira DCPIA - Discharge Planning Initial Assessment Updated by [email or web address]: Helen Lira on 02/02/19 7:41 pm * Is the patient Alert and Oriented? No * PCP [facility] * Pharmacy [facility] * Preadmission Environment [employer] [facility] * Facility Name [facility] * ADLs Total Dependent * List name and contact numbers for known caregivers / representatives who currently or will assist patient after discharge: Porsha Monroe -daughter- [phone] * Verbal permission to speak to the caregivers and representatives has been obtained from the patient. N/A * Community resources currently utilized None * Additional services required to return to the preadmission environment? No * Can the patient safely return to the preadmission environment? Yes * Has this patient been hospitalized within the prior 30 days at any hospital? No Last DP export: 02/05/19 3:00 p Patient Name: EMILE AMBRIZ Page 06153 at 1607 All edits/amendments must be made on the electronic document DICTATION DATE: 02/05/191606 PRINTED CIRCUIT BOARD PANELS DEVELOPER: GERMÁN 02/05/191606 RPT#: [id number] DC DATE: STATUS: ADM IN [facility] [address] [place] [address] END OF REPORT
--- NOTE | 2019-02-05 18:33 | NUR ---
TUBE FEEDING INCREASED TO 25CC HR. TOLERATING FEEDING WELL.
--- NOTE | 2019-02-05 19:12 | NUR ---
AWAKE WITH FAMILY PRESENT BED LOW AND LOCKED AND SRX2
--- NOTE | 2019-02-06 01:51 | NUR ---
I have reviewed this patient and I concur with the Shift Assessment completed by the Licensed Practical Nurse today this shift.
[2019-02-06 04:00] VITALS: BP 140/121
[2019-02-06 05:29] LABS: HEMATOCRIT 42.5 % (36.0-48.0); HEMOGLOBIN 13.6 g/dL (12-16); MCH 28.8 pg (26.0-34.0); MCV 89.9 fL (80.0-100.0); PLATELET COUNT 85 10x3/uL (130-400); RBC 4.73 10x6/uL (4.00-5.40); RDW 14.1 % (11.5-14.5); WBC 11.7 10x3/uL (4.8-10.8)
[2019-02-06 05:58] LABS: ANION GAP 15.1 mmol/L (8-16); CALCIUM 8.7 mg/dL (8.5-10.1); CARBON DIOXIDE 21.1 mmol/L (21.0-32.0); CREATININE - SERUM 1.6 mg/dL (0.6-1.3); PHOSPHOROUS 2.3 mg/dL (2.5-4.9); POTASSIUM - SERUM 3.2 mmol/L (3.5-5.1)
--- NOTE | 2019-02-06 07:21 | NUR ---
REPORT RECIEVED. PT LYING ON RIGHT SIDE. A&CONFUSED. RR EVEN AND UNLABORED. SHE HAS A L HAND PIV THAT IS SL. SHE HAS A PEG TUBE WITH CONTINUOUS FEEDING WITH A RATE OF 45 AT THIS TIME. SHE HAS A VALDEZ DRAINING URINE. FAMILY AT BEDSIDE. BED LOCKED AND IN LOWEST POSITION, CALL LIGHT WITHIN REACH. WILL CTM
[2019-02-06 09:00] VITALS: BP 112/66
--- NOTE | 2019-02-06 10:14 | MORECARE ---
CASE MANAGEMENT DISCHARGE SUMMARY PATIENT: EMILE AMBRIZ UNIT: [id number] ADM DATE: 01/31/19 AGE: 88 : 32 SEX: F ROOM/BED: D.2102 AUTHOR: SHARYN,DOC PHYSICIAN: REFERRING PHYSICIAN: DORA LR MD DATE OF SERVICE: 02/06/19 Discharge Plan Patient Name: EMILE AMBRIZ Facility: [facility]:[place] : 1930 Planned Disposition: Nursing Facility [facility] Cert Anticipated Discharge Date: 02/06/19 Discharge Date: Expected LOS: 6 Initial Reviewer: [email or web address] Initial Review Date: 01/31/2019 Generated: 02/06/19 11:13 am Comments DCP- Discharge Planning Updated by [email or web address]: Troy Alamo on 02/06/19 9:[address] Patient Name: EMILE AMBRIZ Encounter No: [id number] : 1930 Primary Insurance: MEDICARE A & B Anticipated DC Date: 02-06-2019 Planned Disposition: Nursing Facility [facility] Cert External Planned Provider: [facility], DIAL POLISHER CARE MEDICAID BED CM SPOKE TO PT'S DAUGHTER, PORSHA MONROE, IN ROOM, DISCUSSED DISCHARGE PLANNING. PORSHA CONFIRMS PT WILL DISCHARGE BACK TO [facility] AT DISCHARGE. IMPORTANT MESSAGE FROM MEDICARE PROVIDED AND DISCUSSED. FOR DISCHARGE BACK TO [facility] AT [facility], FAX DISCHARGE INFORMATION TO [facility] AT [phone]. NURSE REPORT TO BE CALLED TO [facility] AT [phone]. PT TO TRANSPORT VIA AMBULANCE. LUCA Lozano DCP- Discharge Planning Updated by [id number]: Troy Alamo on 02/05/19 3:[address] Patient Name: EMILE AMBRIZ Encounter No: [id number] : 1930 Primary Insurance: MEDICARE A & B Anticipated DC Date: 02-06-2019 Planned Disposition: Nursing Facility [facility] Cert External Planned Provider: [facility], DETENTION CARE MEDICAID BED CM CALLED AND SPOKE TO [facility], , WHO ASKED FOR UPDATE ON DIET. CM NOTIFIED OF DIET ORDERS. NOTIFIED OF PLANNED DISHCHARGE TO [facility] TOMORROW. CM [facility], . FOR DISCHARGE BACK TO [facility] C[facility], FAX DISCHARGE INFORMATION TO [facility] AT [phone]. NURSE REPORT TO BE CALLED TO [facility] AT [phone]. PT TO TRANSPORT VIA AMBULANCE. Troy Alamo CASE MANAGEMENT DCP- Discharge Planning Updated by [email or web address]: Troy Alamo on 02/05/19 8:[address] Patient Name: EMILE AMBRIZ Encounter No: [id number] : 1930 Primary Insurance: MEDICARE A & B Anticipated DC Date: Planned Disposition: Nursing Facility [facility] Cert External Planned Provider: [facility], DETENTION CARE MEDICAID BED DCP follow-up note: CM FAXED UPDATE TO [facility], . FOR DISCHARGE BACK TO DETENTION CARE AT [facility], FAX DISCHARGE INFORMATION TO [facility] AT [phone]. NURSE REPORT TO BE [facility] AT [phone]. PT TO TRANSPORT VIA AMBULANCE. Troy Alamo CASE MANAGEMENT DCP- Discharge Planning Updated by [email or web address]: Helen Lira on 02/02/19 6:[address] Patient Name: EMILE AMBRIZ Admission Status: ER Accout number: [id number] Admission Date: 01-31-2019 : 1930 Admission Diagnosis: Attending: BE, Current LOS: 2 Anticipated DC Date: Planned Disposition: Nursing Facility [facility] Cert Primary Insurance: MEDICARE A & B Discharge Planning Comments: CM met with patient and daughter (Porsha) to complete initial dc planning assessment. CM educated patient on the CM role and verbal consent given by patient to complete assessment. Patient lives at [facility] her daughter states she has been a resident there for the past 4 yrs. At discharge patient's daughter plans for her to return to facility. Denied known discharge needs at this time. CM will continue to follow and will assist as needed with dc plans/needs. Vice President Of Brand Management: Helen Lira DCPIA - Discharge Planning Initial Assessment Updated by [email or web address]: Helen Lira on 02/02/19 7:41 pm * Is the patient Alert and Oriented? No * PCP [facility] * Pharmacy [facility] * Preadmission Environment [facility] * Facility Name [facility] * ADLs Total Dependent * List name and contact numbers for known caregivers / representatives who currently or will assist patient after discharge: Porsha Monroe -daughter- [phone] * Verbal permission to speak to the caregivers and representatives has been obtained from the patient. N/A * Community resources currently utilized None * Additional services required to return to the preadmission environment? No * Can the patient safely return to the preadmission environment? Yes * Has this patient been hospitalized within the prior 30 days at any hospital? No Coverage Notice Reviewer: [id number] Maryann Alamo Notice Issued Date-Time: 02/06/2019 10:05 Notice Type: IM Discharge Notice Notice Delivered To: Family Member Relationship to Patient: Daughter Journalism Instructor Name: PORSHA MONROE Delivery Method: HAND - Hand Delivered Susannah Days: Prior Verbal Notification: Recipient Understood Notice: Yes Recipient Signature: Yes Med Rec Note Co-signed by Attending: Coverage Notice Comment: Last DP export: 02/05/19 3:07 p Patient Name: EMILE AMBRIZ Page 17735 at 1014 All edits/amendments must be made on the electronic document DICTATION DATE: 02/06/19 1013 NURSE RN BSN: GERMÁN 02/06/19 1013 RPT#: [id number] DC DATE: STATUS: ADM IN [facility] [address] [place] [address] END OF REPORT
[2019-02-06 11:09] LABS: BASOPHILS 2 % (0-2); EOSINOPHILS 2 % (0-7); LYMPHOCYTES 22 % (15-50); MONOCYTES 6 % (2-11); NEUTROPHILS 65 % (40-80); PLATELET ESTIMATE DECREASED; ROULEAUX OCC
--- NOTE | 2019-02-06 12:32 | NUR ---
Nutrition Follow-up: TF started yesterday. Spoke with pt's nurse this AM. She reports pt tolerating TF at 45 mL/hr with plans to advance to goal rate today. Continue nectar thick liquids per ST. Diet: Clear Liquids, [place] Thick Glucerna 1.0 - goal rate 60 mL/hr No new wt Last BM: 02/05 per chart Labs noted: Na 149, K+ 3.2, Glu 171, PO4 2.3 Meds noted: Humulin -Continue to advance TF to goal rate as tolerated. -PO intake as tolerated; consistencies per ST. -RD following.
[2019-02-06 13:53] VITALS: BP 127/78
--- NOTE | 2019-02-06 16:20 | MORECARE ---
CASE MANAGEMENT DISCHARGE SUMMARY PATIENT: EMILE AMBRIZ UNIT: [id number] ADM DATE: 01/31/19 AGE: 88 : 32 SEX: F ROOM/BED: D.2102 AUTHOR: SHARYNDOC PHYSICIAN: REFERRING PHYSICIAN: DORA LR MD DATE OF SERVICE: 02/06/19 Discharge Plan Patient Name: EMILE AMBRIZ Facility: [facility]:[place] : 1930 Planned Disposition: Nursing Facility [facility] Cert Anticipated Discharge Date: 02/07/19 Discharge Date: Expected LOS: 7 Initial Reviewer: [email or web address] Initial Review Date: 01/31/2019 Generated: 02/06/19 5:20 pm Comments DCP- Discharge Planning Updated by [email or web address]: Troy Alamo on 02/06/19 3:[address] Patient Name: EMILE AMBRIZ Encounter No: [id number] : 1930 Primary Insurance: MEDICARE A & B Anticipated DC Date: 02-07-2019 Planned Disposition: Nursing Facility [facility] Cert External Planned Provider: [facility], [facility] MEDICAID BED [facility], THEY HAVE FORMULA ORDERED AND WILL HAVE IT SATURDAY. THEY WILL TRY TO ORDER FORMULA FOR TOMORROW DELIVERY BUT CANNOT BE CERTAIN IT WILL ARRIVE. THEY WILL ACCEPT PT TOMORROW, 02-07-19, BUT WOULD NEED FORMULA FOR SATURDAY AND SATURDAY SENT WITH PT IF POSSIBLE. BEDSIDE NURSE NOTIFIED. FOR DISCHARGE BACK TO [facility], FAX DISCHARGE INFORMATION TO [facility] AT [phone]. NURSE REPORT TO BE CALLED TO [facility] AT [phone]. PT TO TRANSPORT VIA AMBULANCE. PLEASE SEND TUBE FEEDING FORMULA FOR SATURDAY AND SATURDAY. LUCA Lozano DCP- Discharge Planning Updated by [email or web address]: Troy Alamo on 02/06/19 9:[address] Patient Name: EMIEL AMBRIZ Encounter No: [id number] : 1930 Primary Insurance: MEDICARE A & B Anticipated DC Date: 02-06-2019 Planned Disposition: Nursing Facility [facility] Cert External Planned Provider: [facility], LONG TERM CARE MEDICAID BED CM SPOKE TO PT'S DAUGHTER, PORSHA MONROE, IN ROOM, DISCUSSED DISCHARGE PLANNING. PORSHA CONFIRMS PT WILL DISCHARGE BACK TO [facility] AT DISCHARGE. IMPORTANT MESSAGE FROM MEDICARE PROVIDED AND DISCUSSED. FOR DISCHARGE BACK TO [facility] AT [facility], FAX DISCHARGE INFORMATION TO [facility] AT [phone]. NURSE REPORT TO BE CALLED TO [facility] AT [phone]. PT TO TRANSPORT VIA AMBULANCE. LUCA Lozano DCP- Discharge Planning Updated by [email or web address]: Troy Alamo on 02/05/19 3:[address] Patient Name: EMILE AMBRIZ Encounter No: [id number] : 1930 Primary Insurance: MEDICARE A & B Anticipated DC Date: 02-06-2019 Planned Disposition: Nursing Facility [facility] Cert External Planned Provider: [facility], LONG TERM CARE MEDICAID BED CM CALLED AND SPOKE TO [facility], , WHO ASKED FOR UPDATE ON DIET. CM NOTIFIED OF DIET ORDERS. NOTIFIED OF PLANNED DISHCHARGE TO [facility] TOMORROW. CM FAXED UPDATE TO [facility], . FOR DISCHARGE BACK TO [facility] AT [facility], FAX DISCHARGE INFORMATION TO [facility] AT [phone]. NURSE REPORT TO BE CALLED TO [facility] AT [phone]. PT TO TRANSPORT VIA AMBULANCE. Troy Alamo CASE MANAGEMENT DCP- Discharge Planning Updated by [email or web address]: Troy Alamo on 02/05/19 8:[address] Patient Name: EMILE AMBRIZ Encounter No: [id number] : 1930 Primary Insurance: MEDICARE A & B Anticipated DC Date: Planned Disposition: Nursing Facility [facility] Cert External Planned Provider: [facility], LONG TERM CARE MEDICAID BED DCP follow-up note: CM FAXED UPDATE TO [facility], . FOR DISCHARGE BACK TO [facility] AT [facility], FAX DISCHARGE INFORMATION TO [facility] AT [phone]. NURSE REPORT TO BE CALLED TO [facility] AT [phone]. PT TO TRANSPORT VIA AMBULANCE. Troy Alamo, CASE MANAGEMENT DCP- Discharge Planning Updated by [email or web address]: Helen Lira on 02/02/19 6:[address] Patient Name: EMILE AMBRIZ Admission Status: ER Accout number: [id number] Admission Date: 01-31-2019 : 1930 Admission Diagnosis: Attending: BE, Current LOS: 2 Anticipated DC Date: Planned Disposition: Nursing Facility [facility] Primary Insurance: MEDICARE A & B Discharge Planning Comments: CM met with patient and daughter (Porsha) to complete initial dc planning assessment. CM educated patient on the CM role and verbal consent given by patient to complete assessment. Patient lives at [facility] her daughter states she has been a resident there for the past 4 yrs. At discharge patient's daughter plans for her to return to facility. Denied known discharge needs at this time. CM will continue to follow and will assist as needed with dc plans/needs. Environmental Engineering Manager: Helen Lira DCPIA - Discharge Planning Initial Assessment Updated by [id number]: Helen Aguilarr on 02/02/19 7:41 pm * Is the patient Alert and Oriented? No * PCP [facility] * Pharmacy [facility] * Preadmission Environment [employer] * Facility Name [facility] * ADLs Total Dependent * List name and contact numbers for known caregivers / representatives who currently or will assist patient after discharge: Porsha Monroe -daughter- [phone] * Verbal permission to speak to the caregivers and representatives has been obtained from the patient. N/A * Community resources currently utilized None * Additional services required to return to the preadmission environment? No * Can the patient safely return to the preadmission environment? Yes * Has this patient been hospitalized within the prior 30 days at any hospital? No Coverage Notice Reviewer: [id number] - Troy Alamo Notice Issued Date-Time: 02/06/2019 10:05 Notice Type: IM Discharge Notice Notice Delivered To: Family Member Relationship to Patient: Daughter Wastewater Engineer Name: PORSHA MONROE Delivery Method: HAND - Hand Delivered Susannah Days: Prior Verbal Notification: Recipient Understood Notice: Yes Recipient Signature: Yes Med Rec Note Co-signed by Attending: Coverage Notice Comment: Last DP export: 02/06/19 9:14 a Patient Name: EMILE AMBRIZ Page 49920 at 1620 All edits/amendments must be made on the electronic document DICTATION DATE: 02/06/19 1620 SENIOR DATA SCIENTIST: GERMÁN 02/06/19 1620 RPT#: [id number] DC DATE: STATUS: ADM IN [facility] [address] [place] [address] END OF REPORT
[2019-02-06 18:40] VITALS: BP 133/52
--- NOTE | 2019-02-06 18:45 | NUR ---
WRITTEN REPORT RECEIVED, PT CARE ASSUMED. INTRODUCED SELF AND WROTE NAME ON BOARD. PT LYING IN BED WATCHING TV, AAOX1, REORIENTED TO TIME, PLACE, AND SITUATION. DENIES PAIN OR ANY OTHER NEEDS AT THIS TIME. BED IN LOWEST POSITION, SR X3, CALL LIGHT WITHIN REACH. WILL CONTINUE TO MONITOR.
[2019-02-06 20:00] VITALS: BP 112/59
--- NOTE | 2019-02-06 21:23 | NUR ---
FSBS 226, 8 UNITS INSULIN ADMINSITERED LEFT ARM, PER SLIDING SCALE. 2 ML RESIDUAL NOTED FROM G-TUBE. 20 ML WATER FLUSH ADMINSITERED, PT TOLERATED WITHOUT ISSUE. BM NOTED IN BED, ASSISTED SHAY BASHIR, WITH LINEN/GOWN CHANGE AND BATH. PT REORIENTED TO PLACE, SITUATION, AND TIME. DENIES ANY OTHER NEEDS AT THIS TIME. BED IN LOWEST POSITION, SR X2, CALL LIGHT WITHIN REACH. WILL CONTINUE TO MONITOR.
[2019-02-07] VITALS: BP 115/63
[2019-02-07 04:30] VITALS: BP 126/105
[2019-02-07 05:31] LABS: ANION GAP 11.1 mmol/L (8-16); CALCIUM 8.6 mg/dL (8.5-10.1); CARBON DIOXIDE 24.2 mmol/L (21.0-32.0); CREATININE - SERUM 1.5 mg/dL (0.6-1.3); PHOSPHOROUS 2.4 mg/dL (2.5-4.9); POTASSIUM - SERUM 3.3 mmol/L (3.5-5.1)
[2019-02-07 05:38] LABS: BASOPHILS 0.2 % (0-2); EOSINOPHILS 1.5 % (0-7); HEMATOCRIT 39.1 % (36.0-48.0); HEMOGLOBIN 12.5 g/dL (12-16); IMMATURE GRANULOCYTES 2.6 % (0-5); LYMPHOCYTES 15.2 % (15-50); MCH 28.5 pg (26.0-34.0); MCV 89.3 fL (80.0-100.0); MONOCYTES 4.8 % (2-11); NEUTROPHILS 75.7 % (40-80); RBC 4.38 10x6/uL (4.00-5.40); RDW 14.3 % (11.5-14.5); WBC 12.4 10x3/uL (4.8-10.8)
[2019-02-07 05:39] LABS: PLATELET COUNT 91 10x3/uL (130-400)
[2019-02-07 08:06] VITALS: BP 157/97
[2019-02-07 11:43] VITALS: BP 114/63
--- NOTE | 2019-02-07 12:33 | NUR ---
REC'D IN BED AWAKE AND ALERT TO SELF ONLY. RESP EVEN AND UNLABORED WITH NO DISTRESS NOTED. CAN EXPRESS NEEDS AND WANTS. NO C/O PAIN OR DISCOMFORT NOTED. ASSESSMENT COMPLETED. C/L IN REACH AT BEDSIDE.
[2019-02-07 15:58] VITALS: BP 127/68
--- NOTE | 2019-02-07 17:11 | NUR ---
I have reviewed this patient and I concur with the Shift Assessment completed by the Licensed Practical Nurse today this shift.
[2019-02-07 17:20] LABS: APPEARANCE CLEAR (CLEAR); BILIRUBIN NEGATIVE (NEGATIVE); COLOR YELLOW (YELLOW); GLUCOSE 250 mg/dL (NEGATIVE); KETONE NEGATIVE (NEGATIVE); NITRITE NEGATIVE (NEGATIVE); PROTEIN 1+ mg/dL (NEGATIVE); UROBILINOGEN NORMAL (NORMAL)
[2019-02-07 17:25] LABS: BACTERIA FEW /hpf (NEGATIVE); EPITHELIAL CELLS NSEEN /hpf (0-5); RED CELLS - URINE 0-5 /hpf (0-5); WHITE CELLS - URINE 0-5 /hpf (NEGATIVE)
--- NOTE | 2019-02-07 19:05 | NUR ---
DAUGHTER AT BEDSIDE.
--- NOTE | 2019-02-07 19:10 | NUR ---
BEDSIDE REPORT RECEIVED FROM DAY SHIFT, PT CARE ASSUMED. WROTE NAME ON BOARD, PT SITTING UP IN BED, WATCHING TV, AAOX1. REORIENTED TO TIME, PLACE, AND SITUATION. PT READJUSTED IN BED, HOB @ 30, DENIES PAIN OR ANY OTHER NEEDS AT THIS TIME. BED IN LOWEST POSITION, SR X2, CALL LIGHT WITHIN REACH. WILL CONTINUE TO MONITOR.
[2019-02-07 20:00] VITALS: BP 101/66
[2019-02-08] VITALS (7 sets, daily range): BP systolic 122–176; BP diastolic 66–100
--- NOTE | 2019-02-08 02:06 | NUR ---
PT LYING IN BED WITH EYES CLOSED, RR EVEN AND NONLABORED, NO S/S OF DISTRESS, AROUSES EASILY TO VOICE. NEW TUBE FEEDING SET HUNG, FREE H20 FLUSHES INCREASED TO 250 ML Q4HRS, PER ORDER. DENIES ANY NEEDS AT THIS TIME. BED IN LOWEST POSITION, SR X3, CALL LIGHT WITHIN REACH. DAUGHTER AT BEDSIDE. WILL CONTINUE TO MONITOR.
[2019-02-08 04:55] LABS: BASOPHILS 0.1 % (0-2); EOSINOPHILS 1.1 % (0-7); HEMATOCRIT 39.4 % (36.0-48.0); HEMOGLOBIN 12.7 g/dL (12-16); IMMATURE GRANULOCYTES 1.7 % (0-5); LYMPHOCYTES 13.7 % (15-50); MCH 28.7 pg (26.0-34.0); MCHC 32.2 g/dL (31.0-37.0); MCV 88.9 fL (80.0-100.0); MEAN PLATELET VOLUME 13.5 fL (7.4-10.4); MONOCYTES 5.5 % (2-11); NEUTROPHILS 77.9 % (40-80); PLATELET COUNT 98 10x3/uL (130-400); RBC 4.43 10x6/uL (4.00-5.40); RDW 14.2 % (11.5-14.5); WBC 14.1 10x3/uL (4.8-10.8)
[2019-02-08 04:57] LABS: PLATELET ESTIMATE DECREASED
[2019-02-08 05:11] LABS: ANION GAP 13.1 mmol/L (8-16); CALCIUM 8.9 mg/dL (8.5-10.1); CARBON DIOXIDE 24.6 mmol/L (21.0-32.0); CREATININE - SERUM 1.4 mg/dL (0.6-1.3); PHOSPHOROUS 2.3 mg/dL (2.5-4.9); POTASSIUM - SERUM 3.7 mmol/L (3.5-5.1)
--- NOTE | 2019-02-08 20:00 | NUR ---
ALERT CONFUSED, NO APPARENT DISTRESS, PULLS AWAY WHEN ATTEMPTING TO REPOSITION IN BED, PEG TUBE AND ABD BINDER IN PLACE VALDEZ CATH TO GRAVITY DRAINAGE, SEE SHIFT ASSESSMENT
[2019-02-09 04:00] VITALS: BP 116/76; BP 131/74
[2019-02-09 05:46] LABS: ANION GAP 12.6 mmol/L (8-16); CALCIUM 8.3 mg/dL (8.5-10.1); CARBON DIOXIDE 25.8 mmol/L (21.0-32.0); CREATININE - SERUM 1.2 mg/dL (0.6-1.3); POTASSIUM - SERUM 3.4 mmol/L (3.5-5.1)
[2019-02-09 06:40] LABS: BASOPHILS 0.2 % (0-2); EOSINOPHILS 1.5 % (0-7); HEMATOCRIT 38.4 % (36.0-48.0); HEMOGLOBIN 12.3 g/dL (12-16); LYMPHOCYTES 17.5 % (15-50); MCH 28.2 pg (26.0-34.0); MCV 88.1 fL (80.0-100.0); MONOCYTES 5.6 % (2-11); NEUTROPHILS 73.2 % (40-80); PLATELET COUNT 112 10x3/uL (130-400); RBC 4.36 10x6/uL (4.00-5.40); RDW 14.3 % (11.5-14.5); WBC 13.3 10x3/uL (4.8-10.8)
--- NOTE | 2019-02-09 07:40 | NUR ---
PATIENT IS AWAKE IN ROOM. HANDS ARE INSIDE OF GOWN TRYING TO TUG ON PEG TUBE. TIED PTS GOWN IN THE BACK AND READJUSTED HER ABDOMINAL BINDER. TURNED TV ON. BED IS IN LOW POSITION AND CALL LIGHT IS IN REACH. PATIENT DENIES ANY PAIN AT THIS TIME. WILL CONTINUE TO MONITOR
[2019-02-09 08:00] VITALS: BP 121/56
[2019-02-09 12:00] VITALS: BP 143/63
--- NOTE | 2019-02-09 13:23 | NUR ---
Nutrition Follow-up: Per nurse, pt receiving Glucerna 1.0 at goal rate of 60 mL/hr and tolerating. Diet: Clear Liquid, [place] Thick Glucerna 1.0 @ 60 mL/hr; H2O flushes 250 cc q 4 hrs No new wt Last BM: 02/08 per chart Labs noted: Na 146, K+ 3.4, Ca 8.3, Glu 200 Meds noted: Humulin -Continue current TF as tolerated with flushes per MD. -RD following.
--- NOTE | 2019-02-09 19:12 | NUR ---
EVENING ROUNDS COMPLETE. PT LAYING IN BED, FAMILY AT BEDSIDE. NO SIGNS OF DISTRESS. PT DENIES ANY PAIN AT THIS TIME. CL IN REACH, BED IN LOWEST POSITION.
[2019-02-09 20:00] VITALS: BP 114/67
[2019-02-10 00:30] VITALS: BP 143/66
[2019-02-10 04:00] VITALS: BP 108/74
[2019-02-10 04:46] LABS: BASOPHILS 0.2 % (0-2); EOSINOPHILS 1.4 % (0-7); HEMATOCRIT 37.2 % (36.0-48.0); HEMOGLOBIN 11.8 g/dL (12-16); IMMATURE GRANULOCYTES 1.7 % (0-5); LYMPHOCYTES 17.7 % (15-50); MCH 28.4 pg (26.0-34.0); MCHC 31.7 g/dL (31.0-37.0); MCV 89.6 fL (80.0-100.0); MEAN PLATELET VOLUME 12.8 fL (7.4-10.4); MONOCYTES 4.4 % (2-11); NEUTROPHILS 74.6 % (40-80); RBC 4.15 10x6/uL (4.00-5.40); RDW 14.5 % (11.5-14.5); WBC 12.7 10x3/uL (4.8-10.8)
[2019-02-10 04:51] LABS: ANION GAP 12.6 mmol/L (8-16); CALCIUM 8.3 mg/dL (8.5-10.1); CARBON DIOXIDE 25.8 mmol/L (21.0-32.0); CREATININE - SERUM 1.3 mg/dL (0.6-1.3); POTASSIUM - SERUM 3.4 mmol/L (3.5-5.1)
[2019-02-10 04:52] LABS: PLATELET COUNT 143 10x3/uL (130-400)
--- NOTE | 2019-02-10 07:41 | NUR ---
REPORT RECIEVED. PT SITTING SEMI FOWLERS WITH PEG FEEDINGS INFUSING @60. SHE HAS A VALDEZ DRAINING URINE. RR EVEN AND UNLABORED. BED LOCKED AND IN LOWEST POSITION, CALL LIGHT WITHIN REACH. WILL CTM
--- NOTE | 2019-02-10 08:26 | MORECARE ---
CASE MANAGEMENT DISCHARGE SUMMARY PATIENT: EMILE AMBRIZ UNIT: [id number] ADM DATE: 01/31/19 AGE: 88 : 32 SEX: F ROOM/BED: D.2102 AUTHOR: SHARYN,DOC PHYSICIAN: REFERRING PHYSICIAN: DORA LR MD DATE OF SERVICE: 02/10/19 Discharge Plan Patient Name: EMILE AMBRIZ Facility: [facility]:[place] : 1930 Planned Disposition: Nursing Facility [facility] Cert Anticipated Discharge Date: 02/07/19 Discharge Date: Expected LOS: 7 Initial Reviewer: [id number] Initial Review Date: 01/31/2019 Generated: 02/10/19 9:25 am DCP- Discharge Planning Updated by [email or web address]: Troy Alamo on 02/06/19 3:[address] Patient Name: EMILE AMBRIZ Encounter No: [id number] : 1930 Primary Insurance: MEDICARE A & B Anticipated DC Date: 02-07-2019 Planned Disposition: Nursing Facility [facility] Cert External Planned Provider: [facility], [facility] MEDICAID BED CM CALLED AND SPOKE TO [facility], THEY HAVE FORMULA ORDERED AND WILL HAVE IT SATURDAY. THEY WILL TRY TO ORDER FORMULA FOR TOMORROW DELIVERY BUT CANNOT BE CERTAIN IT WILL ARRIVE. THEY WILL ACCEPT PT TOMORROW, 02-07-19, BUT WOULD NEED FORMULA FOR SATURDAY AND SATURDAY SENT WITH PT IF POSSIBLE. BEDSIDE NURSE NOTIFIED. FOR DIS[facility]GE BACK TO [facility] [place] [facility], FAX DISCHARGE INFORMATION TO [facility] AT [phone]. NURSE REPORT [facility] [place] AT [phone]. PT TO TRANSPORT VIA AMBULANCE. PLEASE SEND TUBE FEEDING FORMULA FOR SATURDAY AND SATURDAY. LUCA Lozano DCP- Discharge Planning Updated by [id number]: Troy Alamo on 02/06/19 9:[address] Patient Name: EMILE AMBRIZ Encounter No: [id number] : 1930 Primary Insurance: MEDICARE A & B Anticipated DC Date: 02-06-2019 Planned Disposition: Nursing Facility [facility] Cert External Planned Provider: [facility], LONG TERM CARE MEDICAID BED CM SPOKE TO PT'S DAUGHTER, PORSHA MONROE, IN ROOM, DISCUSSED DISCHARGE PLANNING. PORSHA CONFIRMS PT WILL DISCHARGE BACK TO [facility] AT DISCHARGE. IMPORTANT MESSAGE FROM MEDICARE PROVIDED AND DISCUSSED. FOR DISCHARGE BACK TO [facility], FAX DISCHARGE INFORMATION TO [facility] AT [phone]. NURSE REPORT TO BE CALLED TO [facility] AT [phone]. PT TO TRANSPORT VIA AMBULANCE. LUCA Lozano MANAGEMENT DCP- Discharge Planning Updated by [id number]: Troy Alamo on 02/05/19 3:[address] Patient Name: EMILE AMBRIZ Encounter No: [id number] : 1930 Primary Insurance: MEDICARE A & B Anticipated DC Date: 02-06-2019 Planned Disposition: Nursing Facility [facility] Cert External Planned Provider: [facility], LONG TERM CARE MEDICAID BED CM CALLED AND SPOKE TO [facility], , WHO ASKED FOR UPDATE ON DIET. CM NOTIFIED OF DIET ORDERS. NOTIFIED OF PLANNED DISHCHARGE TO [facility] TOMORROW. CM FAXED UPDATE TO [facility], . FOR DISCHARGE BACK TO [facility], FAX DISCHARGE INFORMATION TO [facility] AT [phone]. NURSE REPORT TO BE CALLED TO [facility] AT [phone]. PT TO TRANSPORT VIA AMBULANCE. Troy Alamo CASE MANAGEMENT DCP- Discharge Planning Updated by [id number]: Troy Alamo on 02/05/19 8:[address] Patient Name: EMILE AMBRIZ Encounter No: [id number] : 1930 Primary Insurance: MEDICARE A & B Anticipated DC Date: Planned Disposition: Nursing Facility [facility] Cert External Planned Provider: [facility], LONG TERM CARE MEDICAID BED DCP follow-up note: SONYA FAXED UPDATE TO [facility], . FOR DISCHARGE BACK TO [facility], FAX DISCHARGE INFORMATION TO [facility] AT [phone]. NURSE REPORT TO BE CALLED TO [facility] AT [phone]. PT TO TRANSPORT VIA AMBULANCE. Troy Alamo, CASE MANAGEMENT DCP- Discharge Planning Updated by [email or web address]: Helen Lira on 02/02/19 6:[address] Patient Name: EMILE AMBRIZ Admission Status: ER Accout number: [id number] Admission Date: 01-31-2019 : 1930 Admission Diagnosis: Attending: BE, Current LOS: 2 Anticipated DC Date: Planned Disposition: Nursing Facility [facility] Primary Insurance: MEDICARE A & B Discharge Planning Comments: CM met with patient and daughter (Porsha) to complete initial dc planning assessment. CM educated patient on the CM role and verbal consent given by patient to complete assessment. Patient lives at [facility] her daughter states she has been a resident there for the past 4 yrs. At discharge patient's daughter plans for her to return to facility. Denied known discharge needs at this time. CM will continue to follow and will assist as needed with dc plans/needs. Chocolate Maker: Helen Lira DCPIA - Discharge Planning Initial Assessment Updated by [id number]: Helen Soraya on 02/02/19 7:41 pm * Is the patient Alert and Oriented? No * PCP [facility] * Pharmacy [facility] * Preadmission Environment [facility] * Facility Name [facility] * ADLs Total Dependent * List name and contact numbers for known caregivers / representatives who currently or will assist patient after discharge: Porsah Monroe -daughter- [phone] * Verbal permission to speak to the caregivers and representatives has been obtained from the patient. N/A * Community resources currently utilized None * Additional services required to return to the preadmission environment? No * Can the patient safely return to the preadmission environment? Yes * Has this patient been hospitalized within the prior 30 days at any hospital? No External Providers External Provider: [facility] Next Contact Date: 02/05/2019 Service Request Date: Service Type: Resolution: Reviewer: Comments: Coverage Notice Reviewer: [id number] - Troy Armour Notice Issued Date-Time: 02/06/2019 10:05 Notice Type: IM Discharge Notice Notice Delivered To: Family Member Relationship to Patient: Daughter Motor Vehicle Parts Interpreter Name: PORSHA MONROE Delivery Method: HAND - Hand Delivered Susannah Days: Prior Verbal Notification: Recipient Understood Notice: Yes Recipient Signature: Yes Med Rec Note Co-signed by Attending: Coverage Notice Comment: Last DP export: 02/06/19 3:20 p Patient Name: EMILE AMBRIZ Page 24531 at 0826 All edits/amendments must be made on the electronic document DICTATION DATE: 02/10/19824 IN HOME AIDE: GERMÁN 02/10/19824 RPT#: [id number] DC DATE: STATUS: ADM IN [facility] [address] [place] [address] END OF REPORT
--- NOTE | 2019-02-10 08:39 | MORECARE ---
CASE MANAGEMENT DISCHARGE SUMMARY PATIENT: EMILE AMBRIZ UNIT: [id number] ADM DATE: 01/31/19 AGE: 88 : 32 SEX: F ROOM/BED: D.2102 AUTHOR: SHARYN,DOC PHYSICIAN: REFERRING PHYSICIAN: DORA LR MD DATE OF SERVICE: 02/10/19 Discharge Plan Patient Name: EMILE AMBRIZ Facility: [facility]:[place] : 1930 Planned Disposition: Nursing Facility [facility] Cert Anticipated Discharge Date: 02/07/19 Discharge Date: Expected LOS: 7 Initial Reviewer: [id number] Initial Review Date: 01/31/2019 Generated: 02/10/19 9:39 am Comments DCP- Discharge Planning Updated by [email or web address]: Troy Alamo on 02/10/19 7:[address] Patient Name: EMILE AMBRIZ Encounter No: [id number] : 1930 Primary Insurance: MEDICARE A & B Anticipated DC Date: 02-07-2019 Planned Disposition: Nursing Facility [facility] Cert External Planned Provider: [facility], [facility] MEDICAID BED CM CALLED AND LEFT MESSAGE FOR [facility], TO VERI FORMULA WAS DELIVERED ON SATURDAY. CM SPOKE TO PT'S DAUGHTER IN ROOM WHO ANTICIPATES DISCHARGE BACK TO [facility] TODAY. IMPORTANT MESSAGE FROM MEDICARE PROVIDED AND EXPLAINED. CM FAXED UPDATE TO [facility]. FOR DISCHARGE BACK TO [facility] AT [facility], FAX DISCHARGE INFORMATION TO [facility] AT [phone]. NURSE REPORT TO BE CALLED TO [facility] AT [phone]. PT TO TRANSPORT VIA AMBULANCE. LUCA Lozano DCP- Discharge Planning Updated by [email or web address]: Troy Alamo on 02/06/19 3:[address] Patient Name: EMILE AMBRIZ Encounter No: [id number] : 1930 Primary Insurance: MEDICARE A & B Anticipated DC Date: 02-07-2019 Planned Disposition: Nursing Facility [facility] Cert External Planned Provider: [facility], STRIP MACHINE OPERATOR CARE MEDICAID BED CM CALLED AND SPOKE TO [facility], THEY HAVE FORMULA ORDERED AND WILL HAVE IT SATURDAY. THEY WILL TRY TO ORDER FORMULA FOR TOMORROW DELIVERY BUT CANNOT BE CERTAIN IT WILL ARRIVE. THEY WILL ACCEPT PT TOMORROW, 02-07-19, BUT WOULD NEED FORMULA FOR SATURDAY AND SATURDAY SENT WITH PT IF POSSIBLE. BEDSIDE NURSE NOTIFIED. FOR DISCHARGE BACK TO [facility], FAX DISCHARGE INFORMATION TO [facility] AT [phone]. NURSE REPORT TO BE CALLED TO [facility] AT [phone]. PT TO TRANSPORT VIA AMBULANCE. PLEASE SEND TUBE FEEDING FORMULA FOR SATURDAY AND SATURDAY. Troy Alamo CASE MANAGEMENT DCP- Discharge Planning Updated by [id number]: Troy Alamo on 02/06/19 9:[address] Patient Name: EMILE AMBRIZ Encounter No: [id number] : 1930 Primary Insurance: MEDICARE A & B Anticipated DC Date: 02-06-2019 Planned Disposition: Nursing Facility [facility] Cert External Planned Provider: [facility], LONG TERM CARE MEDICAID BED CM SPOKE TO PT'S DAUGHTER, PORSHA MONROE, IN ROOM, DISCUSSED DISCHARGE PLANNING. PORSHA CONFIRMS PT WILL DISCHARGE BACK TO [facility] AT DISCHARGE. IMPORTANT MESSAGE FROM MEDICARE PROVIDED AND DISCUSSED. FOR DISCHARGE BACK TO [facility] AT [facility], FAX DISCHARGE INFORMATION TO [facility] AT [phone]. NURSE REPORT TO BE CALLED TO [facility] AT [phone]. PT TO TRANSPORT VIA AMBULANCE. LUCA Lozano DCP- Discharge Planning Updated by [id number]: Troy Alamo on 02/05/19 3:[address] Patient Name: EMILE AMBRIZ Encounter No: [id number] : 1930 Primary Insurance: MEDICARE A & B Anticipated DC Date: 02-06-2019 Planned Disposition: Nursing Facility [facility] Cert External Planned Provider: [facility], LONG TERM CARE MEDICAID BED CM CALLED AND SPOKE TO [facility], , WHO ASKED FOR UPDATE ON DIET. CM NOTIFIED OF DIET ORDERS. NOTIFIED OF PLANNED DISHCHARGE TO [facility] TOMORROW. CM FAXED UPDATE TO [facility], . FOR DISCHARGE BACK TO [facility] CARE [facility], FAX DISCHARGE INFORMATION TO [facility] AT [phone]. NURSE REPORT TO BE CALLED TO [facility] AT [phone]. PT TO TRANSPORT VIA AMBULANCE. Tory Alamo CASE MANAGEMENT DCP- Discharge Planning Updated by [id number]: Troy Alamo on 02/05/19 8:[address] Patient Name: EMILE AMBRIZ Encounter No: [id number] : 1930 Primary Insurance: MEDICARE A & B Anticipated DC Date: Planned Disposition: Nursing Facility [facility] Cert External Planned Provider: [facility], SNF CARE MEDICAID BED DCP follow-up note: CM FAXED UPDATE TO [facility], . FOR DISCHARGE BACK TO [facility] CARE AT [facility], FAX DISCHARGE INFORMATION TO [facility] AT [phone]. NURSE REPORT TO BE CALLED TO [facility] AT [phone]. PT TO TRANSPORT VIA AMBULANCE. LUCA Lozano DCP- Discharge Planning Updated by [id number]: Helen Lira on 02/02/19 6:[address] Patient Name: EMILE AMBRIZ Admission Status: ER Accout number: [id number] Admission Date: 01-31-2019 : 1930 Admission Diagnosis: Attending: BE, Current LOS: 2 Anticipated DC Date: Planned Disposition: Nursing Facility [facility] Cert Primary Insurance: MEDICARE A & B Discharge Planning Comments: CM met with patient and daughter (Porsha) to complete initial dc planning assessment. CM educated patient on the CM role and verbal consent given by patient to complete assessment. Patient lives at [facility] her daughter states she has been a resident there for the past 4 yrs. At discharge patient's daughter plans for her to return to facility. Denied known discharge needs at this time. CM will continue to follow and will assist as needed with dc plans/needs. Head Girls Golf Coach: Helen Lira DCPIA - Discharge Planning Initial Assessment Updated by [id number]: Helen Lira on 02/02/19 7:41 pm * Is the patient Alert and Oriented? No * PCP [facility] * Pharmacy [facility] * Preadmission Environment [facility] * Facility Name [facility] * ADLs Total Dependent * List name and contact numbers for known caregivers / representatives who currently or will assist patient after discharge: Porsha Monroe -daughter- [phone] * Verbal permission to speak to the caregivers and representatives has been obtained from the patient. N/A * Community resources currently utilized None * Additional services required to return to the preadmission environment? No * Can the patient safely return to the preadmission environment? Yes * Has this patient been hospitalized within the prior 30 days at any hospital? No Coverage Notice Reviewer: ROSSI Alamo Notice Issued Date-Time: 02/06/2019 10:05 Notice Type: IM Discharge Notice Notice Delivered To: Family Member Relationship to Patient: Daughter Lye Peel Operator Name: PORSHA MONROE Delivery Method: HAND - Hand Delivered Susannah Days: Prior Verbal Notification: Recipient Understood Notice: Yes Recipient Signature: Yes Med Rec Note Co-signed by Attending: Coverage Notice Comment: Reviewer: ROSSI Alamo Notice Issued Date-Time: 02/10/2019 8:25 Notice Type: IM Discharge Notice Notice Delivered To: Family Member Relationship to Patient: Daughter Lye Peel Operator Name: PORSHA MONROE Delivery Method: HAND - Hand Delivered Susannah Days: Prior Verbal Notification: Recipient Understood Notice: Yes Recipient Signature: Yes Med Rec Note Co-signed by Attending: Coverage Notice Comment: Last DP export: 02/10/19 7:26 Patient Name: EMILE AMBRIZ Page 70220 at 0839 All edits/amendments must be made on the electronic document DICTATION DATE: 02/10/19838 ADDICTIONS COUNSELOR ASSISTANT: GERMÁN 02/10/19838 RPT#: [id number] DC DATE: STATUS: ADM IN [facility] [address] [place] [address] END OF REPORT
[2019-02-10 08:51] VITALS: BP 148/80
--- NOTE | 2019-02-10 09:11 | MORECARE ---
CASE MANAGEMENT DISCHARGE SUMMARY PATIENT: EMILE AMBRIZ UNIT: [id number] ADM DATE: 01/31/19 AGE: 88 : 32 SEX: F ROOM/BED: D.2102 AUTHOR: SHARYN,DOC PHYSICIAN: REFERRING PHYSICIAN: DORA LR MD DATE OF SERVICE: 02/10/19 Discharge Plan Patient Name: EMILE AMBRIZ Facility: [facility]:[place] : 1930 Planned Disposition: Nursing Facility [facility] Cert Anticipated Discharge Date: 02/07/19 Discharge Date: Expected LOS: 7 Initial Reviewer: [id number] Initial Review Date: 01/31/2019 Generated: 02/10/19 10:11 am Comments DCP- Discharge Planning Updated by [email or web address]: Troy Alamo on 02/10/19 8:[address] Patient Name: EMILE AMBRIZ Encounter No: [id number] : 1930 Primary Insurance: MEDICARE A & B Anticipated DC Date: 02-07-2019 Planned Disposition: Nursing Facility [facility] Cert External Planned Provider[facility] [place], RESIDENTIAL CARE MEDICAID BED CM CALLED AND LEFT MESSAGE FOR [facility], TO VERIFIY FORMULA WAS DELIVERED ON SATURDAY. CM SPOKE TO PT'S DAUGHTER IN ROOM WHO ANTICIPATES DISCHARGE BACK TO [facility] TODAY. IMPORTANT MESSAGE FROM MEDICARE PROVIDED AND EXPLAINED. CM FAXED UPDATE TO [facility]. FOR DISCHARGE BACK TO [facility] AT [facility], FAX DISCHARGE INFORMATION TO [facility] AT [phone]. NURSE REPORT TO BE CALLED TO [facility] AT [phone]. PT TO TRANSPORT VIA AMBULANCE. Troy Alamo, CASE MANAGEMENT Appended by Troy Alamo on 02/10/2019 9:05 MOLDED GRID AND PARTS INSPECTOR: CM RECEIVED CALL FROM [facility], THE TUBE FEED FORMULA WAS DELAYED AND WILL ARRIVE 02-11-19. IF PT DISCHARGES TODAY, SHE ASKED THAT ENOUGH FORMULA BE SENT FOR TODAY AND IN THE MORNING. FOR DISCHARGE BACK TO [facility] AT [facility], FAX DISCHARGE INFORMATION TO [facility] AT [phone]. NURSE REPORT TO BE CALLED TO [facility] AT [phone]. PT TO TRANSPORT VIA AMBULANCE. SEND TUBE FEED FORMULA FOR TODAY AND IN THE MORNING. LUCA Lozano MANAGEMENT DCP- Discharge Planning Updated by [email or web address]: Troy Alamo on 02/06/19 3:[address] Patient Name: EMILE AMBRIZ Encounter No: [id number] : 1930 Primary Insurance: MEDICARE A & B Anticipated DC Date: 02-07-2019 Planned Disposition: Nursing Facility [facility] Cert External Planned Provider: [facility], LONG TERM CARE MEDICAID BED CM CALLED AND SPOKE TO [facility], THEY HAVE FORMULA ORDERED AND WILL HAVE IT SATURDAY. THEY WILL TRY TO ORDER FORMULA FOR TOMORROW DELIVERY BUT CANNOT BE CERTAIN IT WILL ARRIVE. THEY WILL ACCEPT PT TOMORROW, 02-07-19, BUT WOULD NEED FORMULA FOR SATURDAY AND SATURDAY SENT WITH PT IF POSSIBLE. BEDSIDE NURSE NOTIFIED. FOR DISCHARGE BACK TO [facility], FAX DISCHARGE INFORMATION TO [facility] AT [phone]. NURSE REPORT TO BE CALLED TO [facility] AT [phone]. PT TO TRANSPORT VIA AMBULANCE. PLEASE SEND TUBE FEEDING FORMULA FOR SATURDAY AND SATURDAY. LUCA Lozano DCP- Discharge Planning Updated by [id number]: Troy Alamo on 02/06/19 9:[address] Patient Name: EMILE AMBRIZ Encounter No: [id number] : 1930 Primary Insurance: MEDICARE A & B Anticipated DC Date: 02-06-2019 Planned Disposition: Nursing Facility [facility] Cert External Planned Provider: [facility], LONG TERM CARE MEDICAID BED CM SPOKE TO PT'S DAUGHTER, PORSHA MONROE, IN ROOM, DISCUSSED DISCHARGE PLANNING. PORSHA CONFIRMS PT WILL DISCHARGE BACK TO [facility] AT DISCHARGE. IMPORTANT MESSAGE FROM MEDICARE PROVIDED AND DISCUSSED. FOR DISCHARGE BACK TO [facility], FAX DISCHARGE INFORMATION TO [facility] AT [phone]. NURSE REPORT TO BE CALLED TO [facility] AT [phone]. PT TO TRANSPORT VIA AMBULANCE. LUCA Lozano MANAGEMENT DCP- Discharge Planning Updated by [id number]: Troy Alamo on 02/05/19 3:[address] Patient Name: EMILE AMBRIZ Encounter No: [id number] : 1930 Primary Insurance: MEDICARE A & B Anticipated DC Date: 02-06-2019 Planned Disposition: Nursing Facility [facility] Cert External Planned Provider: [facility], COL[facility] REPAIRER [facility]ARE MEDICAID BED CM CALLED AND SPOKE TO [facility], , WHO ASKED FOR UPDATE ON DIET. CM NOTIFIED OF DIET ORDERS. NOTIFIED OF PLANNED DISHCHARGE TO ALF TOMORROW. CM FAXED UPDATE TO [facility], . FOR DISCHARGE BACK TO [facility] AT [facility], FAX DISCHARGE INFORMATION TO [facility] AT [phone]. NURSE REPORT TO BE CALLED TO [facility] AT [phone]. PT TO TRANSPORT VIA AMBULANCE. LUCA Lozano MANAGEMENT DCP- Discharge Planning Updated by [id number]: Troy Alamo on 02/05/19 8:[address] Patient Name: EMILE AMBRIZ Encounter No: [id number] : 1930 Primary Insurance: MEDICARE A & B Anticipated DC Date: Planned Disposition: Nursing Facility [facility] Cert External Planned Provider: [facility], RESIDENTIAL CARE MEDICAID BED DCP follow-up note: CM FAXED UPDATE TO [facility], . FOR DISCHARGE BACK TO RESIDENTIAL CARE AT [facility], FAX DISCHARGE INFORMATION TO [facility] AT [phone]. NURSE REPORT TO BE CALLED TO [facility] AT [phone]. PT TO TRANSPORT VIA AMBULANCE. Troy Alamo CASE MANAGEMENT DCP- Discharge Planning Updated by [id number]: Helen Lira on 02/02/19 6:[address] Patient Name: EMILE AMBRIZ Admission Status: ER Accout number: [id number] Admission Date: 01-31-2019 : 1930 Admission Diagnosis: Attending: BE, Current LOS: 2 Anticipated DC Date: Planned Disposition: Nursing Facility [facility] Primary Insurance: MEDICARE A & B Discharge Planning Comments: CM met with patient and daughter (Porsha) to complete initial dc planning assessment. CM educated patient on the CM role and verbal consent given by patient to complete assessment. Patient lives at [facility] her daughter states she has been a resident there for the past 4 yrs. At discharge patient's daughter plans for her to return to facility. Denied known discharge needs at this time. CM will continue to follow and will assist as needed with dc plans/needs. Resource Engineer: Helen Lira DCPIA - Discharge Planning Initial Assessment Updated by [id number]: Helen Lira on 02/02/19 7:41 pm * Is the patient Alert and Oriented? No * PCP [facility] * Pharmacy [facility] * Preadmission Environment [facility] * Facility Name [facility] * ADLs Total Dependent * List name and contact numbers for known caregivers / representatives who currently or will assist patient after discharge: Porsha Monroe -daughter- [phone] * Verbal permission to speak to the caregivers and representatives has been obtained from the patient. N/A * Community resources currently utilized None * Additional services required to return to the preadmission environment? No * Can the patient safely return to the preadmission environment? Yes * Has this patient been hospitalized within the prior 30 days at any hospital? No Coverage Notice Reviewer: [id number] Maryann Alamo Notice Issued Date-Time: 02/06/2019 10:05 Notice Type: IM Discharge Notice Notice Delivered To: Family Member Relationship to Patient: Daughter Optical Instruments Supervisor Name: PORSHA MONROE Delivery Method: HAND - Hand Delivered Susannah Days: Prior Verbal Notification: Recipient Understood Notice: Yes Recipient Signature: Yes Med Rec Note Co-signed by Attending: Coverage Notice Comment: Reviewer: [id number] Maryann Alamo Notice Issued Date-Time: 02/10/2019 8:25 Notice Type: IM Discharge Notice Notice Delivered To: Family Member Relationship to Patient: Daughter Optical Instruments Supervisor Name: PORSHA MONROE Delivery Method: HAND - Hand Delivered Susannah Days: Prior Verbal Notification: Recipient Understood Notice: Yes Recipient Signature: Yes Med Rec Note Co-signed by Attending: Coverage Notice Comment: Last DP export: 02/10/19 7:39 Patient Name: EMILE AMBRIZ Page 44207 at 0911 All edits/amendments must be made on the electronic document DICTATION DATE: 02/10/19909 SHIP ENGINEER: GERMÁN 02/10/19909 RPT#: [id number] DC DATE: STATUS: ADM IN [facility] [address] [place] [address] END OF REPORT
--- NOTE | 2019-02-10 10:30 | NUR ---
PATIENT RESTING IN BED, NO DISTRESS. CALL LIGHT WITHIN REACH. I AGREE WITH ASSESSMENT BY ANMOL.
[2019-02-10 12:02] VITALS: BP 145/83
--- NOTE | 2019-02-10 12:53 | NUR ---
REPORT CALLED TO ELTON AT [facility]. DC PAPERWORK GONE OVER AND SIGNED WITH PT AND HER DAUGHTER. ALL QUESTIONS ANSWERED. COURTNEY HOPSON. PEG TUBE FLUSHED WITH 200 CC AND PLUGED. EMS TO TRANSPORT PT BACK TO FACILITY IN [place].
--- NOTE | 2019-02-10 15:09 | MORECARE ---
CASE MANAGEMENT DISCHARGE SUMMARY PATIENT: EMILE AMBRIZ UNIT: [id number] ADM DATE: 01/31/19 AGE: 88 : 34 SEX: F ROOM/BED: D.2102 AUTHOR: SHARYN,DOC PHYSICIAN: REFERRING PHYSICIAN: DORA LR MD DATE OF SERVICE: 02/10/19 Discharge Plan Patient Name: EMILE AMBRIZ Facility: [facility]:[place] : 1930 Planned Disposition: Nursing Facility [facility] Cert Anticipated Discharge Date: 02/10/19 Discharge Date: 02/10/2019 Expected LOS: 10 Initial Reviewer: [id number] Initial Review Date: 01/31/2019 Generated: 02/10/19 4:08 pm Comments DCP- Discharge Planning Updated by [id number]: Troy Alamo on 02/10/19 2:[address] Patient Name: EMILE AMBRIZ Encounter No: [id number] : 1930 Primary Insurance: MEDICARE A & B Anticipated DC Date: 02-07-2019 Planned Disposition: Nursing Facility [facility] Cert External [facility] MEDICAID BED CM CALLED AND LEFT MESSAGE FOR [facility], TO VERIFIY FORMULA WAS DELIVERED ON SATURDAY. CM SPOKE TO PT'S DAUGHTER IN ROOM WHO ANTICIPATES DISCHARGE BACK TO [facility] TODAY. IMPORTANT MESSAGE FROM MEDICARE PROVIDED AND EXPLAINED. CM FAXED UPDATE TO [facility]. FOR DISCHARGE BACK TO [facility] AT [facility], FAX DISCHARGE INFORMATION TO [facility] AT [phone]. NURSE REPORT TO BE CALLED TO [facility] AT [phone]. PT TO TRANSPORT VIA AMBULANCE. Troy Alamo, CASE MANAGEMENT Appended by Troy Alamo on 02/10/2019 9:05 HEALTHCARE OR MEDICAL: CM RECEIVED CALL FROM [facility]ST[facility], THE TUBE FEED FORMULA WAS DELAYED AND WILL ARRIVE 02-11-19. IF PT DISCHARGES TODAY, SHE ASKED THAT ENOUGH FORMULA BE SENT FOR TODAY AND IN THE MORNING. FOR DISCHARGE BACK TO [facility], FAX DISCHARGE INFORMATION TO [facility] AT [phone]. NURSE REPORT TO BE CALLED TO [facility] AT [phone]. PT TO TRANSPORT VIA AMBULANCE. SEND TUBE FEED FORMULA FOR TODAY AND IN THE MORNING. Troy Alamo, CASE MANAGEMENT Appended by Troy Alamo on 02/10/2019 15:01 HEALTHCARE OR MEDICAL: CM FAXED DISCHARGE INFORMATION TO [facility] AT [phone]. NURSE REPORT TO BE CALLED TO [facility] AT [phone]. PT TO TRANSPORT VIA AMBULANCE. SEND TUBE FEED FORMULA FOR TODAY AND IN THE MORNING. BEDSIDE NURSE NOTIFIED. LUCA Lozano DCP- Discharge Planning Updated by [id number]: Troy Alamo on 02/06/19 3:[address] Patient Name: EMILE AMBRIZ Encounter No: [id number] : 1930 Primary Insurance: MEDICARE A & B Anticipated DC Date: 02-07-2019 Planned Disposition: Nursing Facility [facility] External Planned Provider[facility] MEDICAID BED CALLED AND SPOKE TO JOEY OF [facility], THEY HAVE FORMULA ORDERED AND WILL HAVE IT SATURDAY. THEY WILL TRY TO ORDER FORMULA FOR TOMORROW DELIVERY BUT CANNOT BE CERTAIN IT WILL ARRIVE. THEY WILL ACCEPT PT TOMORROW, 02-07-19, BUT WOULD NEED FORMULA FOR SATURDAY AND SATURDAY SENT WITH PT IF POSSIBLE. BEDSIDE NURSE NOTIFIED. FOR [facility]GE BACK TO [facility], FAX DISCHARGE INFORMATION TO [facility] AT [phone]. NURSE REPORT TO BE CALLED TO [facility] AT [phone]. PT TO TRANSPORT VIA AMBULANCE. PLEASE SEND TUBE FEEDING FORMULA FOR SATURDAY AND SATURDAY. LUCA Lozano DCP- Discharge Planning Updated by [id number]: Troy Alamo on 02/06/19 9:[address] Patient Name: EMILE AMBRIZ Encounter No: [id number] : 1930 Primary Insurance: MEDICARE A & B Anticipated DC Date: 02-06-2019 Planned Disposition: Nursing Facility [facility] Cert External Planned Provider: [facility], LONG TERM CARE MEDICAID BED CM SPOKE TO PT'S DAUGHTER, PORSHA MONROE, IN ROOM, DISCUSSED DISCHARGE PLANNING. PORSHA CONFIRMS PT WILL DISCHARGE BACK TO [facility] AT DISCHARGE. IMPORTANT MESSAGE FROM MEDICARE PROVIDED AND DISCUSSED. FOR DISCHARGE BACK TO [facility], FAX DISCHARGE INFORMATION TO [facility] AT [phone]. NURSE REPORT TO BE CALLED TO [facility] AT [phone]. PT TO TRANSPORT VIA AMBULANCE. LUCA Lozano MANAGEMENT DCP- Discharge Planning Updated by [id number]: Troy Alamo on 02/05/19 3:[address] Patient Name: EMILE AMBRIZ Encounter No: [id number] : 1930 Primary Insurance: MEDICARE A & B Anticipated DC Date: 02-06-2019 Planned Disposition: Nursing Facility [facility] Cert External Planned Provider: [facility], LONG TERM CARE MEDICAID BED CM CALLED AND SPOKE TO [facility], , WHO ASKED FOR UPDATE ON DIET. CM NOTIFIED OF DIET ORDERS. NOTIFIED OF PLANNED DISHCHARGE TO [facility] TOMORROW. CM FAXED UPDATE TO [facility], . FOR DISCHARGE BACK TO [facility], FAX DISCHARGE INFORMATION TO [facility] AT [phone]. NURSE REPORT TO BE CALLED TO [facility] AT [phone]. PT TO TRANSPORT VIA AMBULANCE. LUCA Lozano MANAGEMENT DCP- Discharge Planning Updated by [id number]: Troy Alamo on 02/05/19 8:[address] Patient Name: EMILE AMBRIZ Encounter No: [id number] : 1930 Primary Insurance: MEDICARE A & B Anticipated DC Date: Planned Disposition: Nursing Facility [facility] Cert External Planned Provider: [facility], LONG TERM CARE MEDICAID BED DCP follow-up note: CM FAXED UPDATE TO [facility], . FOR DISCHARGE BACK TO [facility], FAX DISCHARGE INFORMATION TO [facility] AT [phone]. NURSE REPORT TO BE CALLED TO [facility] AT [phone]. PT TO TRANSPORT VIA AMBULANCE. Troy Alamo, CASE MANAGEMENT DCP- Discharge Planning Updated by [id number]: Helen Lira on 02/02/19 6:[address] Patient Name: EMILE AMBRIZ Admission Status: ER Accout number: [id number] Admission Date: 01-31-2019 : 1930 Admission Diagnosis: Attending: BE, Current LOS: 2 Anticipated DC Date: Planned Disposition: Nursing Facility [facility] Primary Insurance: MEDICARE A & B Discharge Planning Comments: CM met with patient and daughter (Porsha) to complete initial dc planning assessment. CM educated patient on the CM role and verbal consent given by patient to complete assessment. Patient lives at [facility] her daughter states she has been a resident there for the past 4 yrs. At discharge patient's daughter plans for her to return to facility. Denied known discharge needs at this time. CM will continue to follow and will assist as needed with dc plans/needs. Hydraulic Pile Hammer Operator: Helen Lira DCPIA - Discharge Planning Initial Assessment Updated by [id number]: Helen Soraya on 02/02/19 7:41 pm * Is the patient Alert and Oriented? No * PCP [facility] * Pharmacy [facility] * Preadmission Environment [facility] * Facility Name [facility] * ADLs Total Dependent * List name and contact numbers for known caregivers / representatives who currently or will assist patient after discharge: Porsha Monroe -daughter- [phone] * Verbal permission to speak to the caregivers and representatives has been obtained from the patient. N/A * Community resources currently utilized None * Additional services required to return to the preadmission environment? No * Can the patient safely return to the preadmission environment? Yes * Has this patient been hospitalized within the prior 30 days at any hospital? No Coverage Notice Reviewer: [id number] - Troy Alamo Notice Issued Date-Time: 02/06/2019 10:05 Notice Type: IM Discharge Notice Notice Delivered To: Family Member Relationship to Patient: Daughter Gleason Operator Name: PORSHA MONROE Delivery Method: HAND - Hand Delivered Susannah Days: Prior Verbal Notification: Recipient Understood Notice: Yes Recipient Signature: Yes Med Rec Note Co-signed by Attending: Coverage Notice Comment: Reviewer: [id number] Maryann Alamo Notice Issued Date-Time: 02/10/2019 8:25 Notice Type: IM Discharge Notice Notice Delivered To: Family Member Relationship to Patient: Daughter Gleason Operator Name: PORSHA MONROE Delivery Method: HAND - Hand Delivered Susannah Days: Prior Verbal Notification: Recipient Understood Notice: Yes Recipient Signature: Yes Med Rec Note Co-signed by Attending: Coverage Notice Comment: Last DP export: 02/10/19 8:11 Patient Name: EMILE AMBRIZ Page [id number] at 1509 All edits/amendments must be made on the electronic document DICTATION DATE: 02/10/19 1508 VOIP NETWORK TECHNICIAN: GERMÁN 02/10/19 1508 RPT#: [id number] DC DATE:02/10/19 STATUS: DIS IN [facility] [address] [place] [address] END OF REPORT
== END 2019-02-10 13:46 | DRG 682 ==
LOC: D.ER 16:20 → EDSEX 16:20 → D.ICU 17:32 → D.ER 17:47 → D.M2 02-04 07:24
PROVIDERS: Family Medicine; Internal Medicine; Internal Medicine Nephrology; Surgery; ADMIT Family Medicine; ATTEND Family Medicine
PROC: 0DH63UZ Insertion of Feeding Device into Stomach, Percutaneous Approach (ICD-10-PCS; principal; 2019-02-04 06:35)
DX: N17.9 Acute kidney failure, unspecified (principal); G93.41 Metabolic encephalopathy; R53.2 Functional quadriplegia; E87.0 Hyperosmolality and hypernatremia; D72.829 Elevated white blood cell count, unspecified; G30.9 Alzheimer's disease, unspecified; F02.80 Dementia in other diseases classified elsewhere, unspecified severity, without behavioral disturbance, psychotic disturbance, mood disturbance, and anxiety; I10 Essential (primary) hypertension; E86.9 Volume depletion, unspecified; R13.10 Dysphagia, unspecified; E86.0 Dehydration; D72.823 Leukemoid reaction

== ENCOUNTER 2019-02-20 11:51 | Emergency (ER) | payer MEDICARE ==
[~2019-02-20] VITALS: Ht 162.6 cm; Wt 90.9 kg
[~2019-02-20 11:51] MED LIST: BAYER CHEWABLE81 MG PO; LISINOPRIL10 MG PO; NORVASC10 MG PO; ZYRTEC10 MG PO
[2019-02-20 11:53] VITALS: Ht 162.6 cm; Wt 90.9 kg
[2019-02-20 12:53] VITALS: BP 133/64
== END 2019-02-20 12:54 ==
LOC: D.ER 11:51
DX: Z43.1 Encounter for attention to gastrostomy (principal)